=== PATIENT | male | born 1935 | race Caucasian/White ===

== ENCOUNTER 2016-07-25 17:11 | Emergency (ER) | payer SELFPAY ==
[~2016-07-25] VITALS: Ht 180.3 cm; Wt 86.4 kg
[2016-07-25 17:34] VITALS: Ht 180.3 cm; Wt 86.4 kg
== END 2016-07-25 21:49 | disposition left against medical advice (07) ==
LOC: E/R 17:11
DX: Z53.21 Procedure and treatment not carried out due to patient leaving prior to being seen by health care provider (principal)

== ENCOUNTER 2016-11-02 12:07 | Inpatient (IN) | payer MEDICARE, OTHER ==
[~2016-11-02] VITALS: Ht 165.1 cm; Wt 71.1 kg
[2016-11-02] VITALS (11 sets, daily range): BP systolic 110–187; BP diastolic 49–98; PULSE 70–128; RESP 18; Ht 165.1 cm; Wt 71.1 kg
[2016-11-02] MEDS ORDERED: morphine 4 MG/ML VIAL IV STA (12:25)
[2016-11-02 13:13] LABS: ADD SCAN DIFF NO
[2016-11-02 13:16] LABS: ABNORMAL IP MESSAGE 1; HEMATOCRIT 21.8 % (42.0-52.0); HEMOGLOBIN 7.3 g/dl (14.0-18.0); MEAN CORPUSCULAR HEMOGLOBIN 25.9 pg (29.0-33.0); MEAN CORPUSCULAR HGB CONC 33.5 g/dl (32.0-37.0); MEAN CORPUSCULAR VOLUME 77.3 fl (82.0-101.0); MEAN PLATELET VOLUME 12.5 fl (7.4-10.4); PLATELET COUNT 231 10^3/UL (140-415); RED BLOOD COUNT 2.82 10^6/ul (4.70-6.10); RED CELL DISTRIBUTION WIDTH 15.9 % (11.5-14.5)
--- NOTE | 2016-11-02 13:27 | RADRPT ---
PROCEDURE: XR Chest. CLINICAL INDICATION: Chest pain TECHNIQUE: Single portable view of the chest was obtained COMPARISON: None FINDINGS: There is moderate cardiomegaly. The thoracic aorta is calcified. There is a right-sided Perma-Cath in place. There is mild pulmonary vascular congestion. There is no evidence of pleural effusion. There is no pneumothorax. The bones and soft tissues are unremarkable. RPTAT: AA IMPRESSION: Moderate cardiomegaly with mild pulmonary vascular congestion. .Virgilio Ahuja MD, Date Time Electronically viewed and signed by .Virgilio Ahuja MD, on 11/02/2016 13:27 .S/
--- NOTE | 2016-11-02 13:30 | RADRPT ---
PROCEDURE: Right knee radiographs. CLINICAL INDICATION: Right knee pain. TECHNIQUE: Three views. Weight bearing. Frontal, lateral, and patellar view. COMPARISON: No prior studies are available for comparison. FINDINGS: There is no fracture or dislocation. There is a large joint effusion. Vascular calcifications are present consistent with atherosclerosi s. The articular surfaces are intact. There is no lytic or blastic lesion. Surgical clips are present in the soft tissues posteriorly medially. There is a small calcification or radiopaque foreign body measuring 0.3 cm in the soft tissues superiorly to the knee anteriorly. IMPRESSION: 1. Large joint effusion. 2. Atherosclerosis. 3. No fracture. 4. Prior surgery. 5. Small foreign body or calcification in the soft tissues anteriorly superior to the joint. RPTAT: QQ .Shahid Lowe MD, Date Time Electronically viewed and signed by .Shahid Lowe MD, on 11/02/2016 13:30 .R/
[2016-11-02 13:31] LABS: INR 1.8; PT RATIO 1.6
[2016-11-02 13:33] LABS: CALCIUM 9.3 mg/dl (8.4-10.2); POTASSIUM 4.4 mmol/L (3.5-5.1)
[2016-11-02 13:45] LABS: CREATININE 10.67 mg/dl (0.61-1.24); TROPONIN-I 0.061 ng/ml (0.00-0.12)
[2016-11-02] MEDS ORDERED: CEFEPIME 2GM/50 ML (PMX) 50 ML IVPB STA (14:28)
[2016-11-02] MEDS ORDERED: VANCOMYCIN 1 GM (PMX) 250 ML IVPB ONE (14:30)
[2016-11-02 14:39] LABS: LYMPHOCYTES # 0.6 10^3/ul (0.8-2.9); MONOCYTE # 1.2 10^3/ul (0.3-0.9); NEUTROPHIL # 27.5 10^3/ul (1.6-7.5)
--- NOTE | 2016-11-02 14:58 | ERA ---
ER Documentation Chief Complaint Date/Time DATE: 11/02/16 TIME: 14:50 Chief Complaint right leg pain HPI Detailed history is unobtainable from patient secondary to his clinical and cognitive deficit. This is a 81-year-old male presents to the emergency room from home for evaluation of right knee pain. The patient does state that he fell 2 days ago on his right knee. He states that he is here "for morphine and that is all". The patient denies any other pain and denies any loss of consciousness. I did not a dialysis catheter on this patient asked this patient whether or not he goes to dialysis. The patient cannot give me an answer one the last time he went to dialysis was. ROS All systems reviewed and are negative except as per history of present illness. PMhx/Soc Medical and Surgical Hx: pt denies Medical Hx Hx Cardiac Disorders: Yes (htn) Hx Psychiatric Problems: No Hx Miscellaneous Medical Probl: Yes (esrd) Hx Alcohol Use: No Hx Tobacco Use: No Smoking Status: Never smoker Physical Exam Vitals Vital Signs Date Time Temp Pulse Resp B/P Pulse Ox O2 Delivery O2 Flow Rate FiO2 11/02/16 13:41 81 18 112/47 98 Room Air Physical Exam INITIAL VITAL SIGNS: Reviewed by me GENERAL: The patient is frail-appearing elderly gentleman, mild this HEENT: Dry mucous membranes, pupils equal, round, and reactive to light. EOMI. There is no scleral icterus. NECK: C-spine is soft and supple, there is no meningismus. There is no cervical lymphadenopathy. LUNGS: Coarse breath sounds bilaterally. There are no rales, wheezes or rhonchi. HEART: Regular rate and rhythm, no murmurs, clicks, rubs or gallops. ABDOMEN: Soft, non-tender, non-distended. There are bowel sounds in all four quadrants. No rebound or guarding. EXTREMITIES: Tender to palpation over the right patellar joint with mild soft tissue swelling, no erythema, there is no peripheral cyanosis or edema. No focal swelling or erythema. NEUROLOGICAL: The patient moves all four extremities with 5/5 strength. Cranial nerves II - XII are intact. Normal gait. Alert and oriented SKIN: Dialysis catheter in the anterior chest wall there is no apparent rash or petechiae. HEME/LYMPHATIC: There is no evidence of excessive bruising or lymphedema. PSYCHIATRIC: The patient does not appear anxious or depressed. Result Diagram: 5/11/17 1240 11/02/16 1240 Results 24 hrs Laboratory Tests Test 11/02/16 12:40 White Blood Count 31.210^3/ul Red Blood Count 2.8210^6/ul Hemoglobin 7.3g/dl Hematocrit 21.8% Mean Corpuscular Volume 77.3fl Mean Corpuscular Hemoglobin 25.9pg Mean Corpuscular Hemoglobin Concent 33.5g/dl Red Cell Distribution Width 15.9% Platelet Count 08771^3/UL Mean Platelet Volume 12.5fl Neutrophils % 88.0% Band Neutrophils % 6.0% Lymphocytes % 2.0% Monocytes % 4.0% Eosinophils % % Neutrophils # 27.510^3/ul Lymphocytes # 0.610^3/ul Monocytes # 1.210^3/ul Eosinophils # 10^3/ul Prothrombin Time 21.0Sec Prothrombin Time Ratio 1.6 INR International Normalized Ratio 1.80 Activated Partial Thromboplast Time 36.0Sec Sodium Level 135mmol/L Potassium Level 4.4mmol/L Chloride Level 98mmol/L Carbon Dioxide Level 21mmol/L Anion Gap 20 Blood Urea Nitrogen 172mg/dl Creatinine 10.67mg/dl Glucose Level 117mg/dl Calcium Level 9.3mg/dl Troponin I 0.061ng/ml Current Medications Medications (Trade) Dose Ordered Sig/Villa Route PRN Reason Start Time Stop Time Status Last Admin Dose Admin Morphine Sulfate 4 mg 4 mg ONCE STAT IV 11/02/16 12:25 11/02/16 12:26 DC 11/02/16 12:46 Cefepime HCl 50 ml @ 100 mls/hr ONCE STAT IVPB 11/02/16 14:28 11/02/16 14:57 11/02/16 14:35 Vancomycin HCl (Vancocin) 250 ml @ 125 mls/hr ONCE ONCE IVPB 11/02/16 14:30 11/02/16 16:29 11/02/16 14:35 Procedures/MDM EKG: Rate/Rhythm: Sinus tachycardia QRS, ST, T-waves: [No changes consistent w/ acute ischemia] Impression: [No evidence of ischemia or arrhythmia] Chest X-ray 1V Interpreted by me: Soft Tissue: No acute abnormalities Bones: No acute abnormalities Mediastinum/Cardiac Silhouette/Lungs: Pulmonary vascular congestion X-ray Knee 3V Interpreted by me: Bones: No fracture Joints: Soft tissue swelling Foreign body: None This 81-year-old male presents to the emergency room for evaluation of right- sided knee pain originally. When I evaluated this patient he did have some soft tissue swelling of his right knee. No erythema of the right knee was noted. Lab work was obtained as I was unable to ascertain when the last time this patient went to dialysis was. This patient's lab work does reveal leukocytosis with bandemia, and microcytic anemia. This patient also has uremia with a BUN of 172. His potassium is within normal limits. Patient is unable to tell me when the last time he went to dialysis, and given his clinical condition with mild confusion I do believe the patient is uremic. This patient did have a septic workup however he was not given 30 cc/kg of IV normal saline as he is a renal patient and does have pulmonary vascular congestion on my examination which is confirmed with chest x-ray. The patient was started on vancomycin and cefepime for sepsis with unknown source at this time. My suspicion for septic joint is low at this time as there is no erythema or streaking noted around the right knee. The patient refuses to let me drain the need for fluid analysis. This patient will be placed in for admission at this time under the care of her panel physician, Dr. Tello with nephrology consult for dialysis for uremia. This patient's knee pain is controlled with morphine at this time Critical Care: Excluding all billable procedures Time: 35 minutes Treatments/Evaluations: Close monitoring and treatment of unstable vital signs, cardiorespiratory, and neurologic status, while maintaining tight balance of fluid, respiratory, and cardiac interventions. Departure Diagnosis: Primary Impression: Sepsis Additional Impressions: Uremia, acute Microcytic anemia Knee effusion, right End stage renal disease Condition: Serious URSULAJIM LLAMASTORSTEN HA November 02, 2016 14:58
[2016-11-02] MEDS ORDERED: ACETAMINOPHEN 325 MG TAB PO PRN ×2 (15:00→16:00)
[2016-11-02] MEDS ORDERED: ONDANSETRON 4 MG INJ IV PRN ×2 (15:00→16:00)
[2016-11-02 15:12] LABS: ADD UMIC YES; URINE BILIRUBIN (Dip) NEGATIVE (NEGATIVE); URINE BLOOD (Dip) 1+ (NEGATIVE); URINE COLOR YELLOW (YELLOW); URINE GLUCOSE (Dip) NEGATIVE (NEGATIVE); URINE KETONES (Dip) NEGATIVE (NEGATIVE); URINE LEUKOCYTE ESTERASE (Dip) 3+ (NEGATIVE); URINE NITRITE (Dip) NEGATIVE (NEGATIVE); URINE TOTAL PROTEIN (Dip) 2+ (NEGATIVE); URINE UROBILINOGEN (Dip) 1.0 E.U./dL (0.1-1.0)
[2016-11-02 15:29] LABS: TRANSITIONAL EPI CELLS,URINE FEW
[2016-11-02 15:30] LABS: BACTERIA,URINE MANY
[2016-11-02] MEDS ORDERED: NACL 0.9% 3 ML SYG IV SCH (16:00)
[2016-11-02] MEDS ORDERED: ACETAMINOPHEN 650 MG SUPP PR PRN (16:00)
[2016-11-02] MEDS ORDERED: MAGNESIUM HYDROXIDE 30ML CUP PO PRN (16:00)
[2016-11-02] MEDS ORDERED: DOCUSATE SODIUM 100 MG CAP PO PRN (16:00)
[2016-11-02] MEDS ORDERED: VANCOMYCIN IV PER PHARMACY XX SCH (16:00)
[2016-11-02] MEDS ORDERED: BISACODYL 10 MG SUPP PR PRN (16:00)
[2016-11-02] MEDS ORDERED: HYDROCODONE/APAP (5/325) TAB PO PRN ×2 (16:00)
[2016-11-02 16:14] LABS: WHITE BLOOD COUNT 31.2 10^3/ul (4.8-10.8)
--- NOTE | 2016-11-02 16:54 | HP ---
Date/Time of Note Date/Time of Note DATE: 11/02/16 TIME: 16:45 Assessment/Plan VTE Prophylaxis VTE Prophylaxis Intervention: heparin Lines/Catheters IV [facility] Type ([facility] Peripheral IV Assessment/Plan Chief Complaint/Hosp Course Assessment and plan 1. Sepsis. Patient noted with positive leukocyte esterase test. Suspect source UTI. Continue with antibiotics. ID consult to follow. Follow-up on mccann cultures 2. Reported mechanical fall with right knee pain. Patient did have right knee imaging did show large joint effusion but no fracture. There was also seen a small foreign body or calcification in the soft tissues anteriorly superior to the joint. Continue with analgesics. Orthopedic surgeon to follow 3. End-stage renal disease. Patient was with reported missed dialysis 2. Nuclear Power Reactor Operator consulted. Plan for dialysis. Follow-up on BMP 4. Reported hypertension. Blood pressure remained stable at present. Will provide antihypertensives as needed. 5. Dyslipidemia. Follow-up on fasting lipid panel. Will start statin pending diagnostic results DVT plexus: Heparin Admission process 40 minutes Discussed plan of care with Problems: HPI/ROS Admit Date/Time Admit Date/Time Hx of Present Illness There is a 81-year-old male who is a poor historian and slightly altered due to reported missed dialysis was brought to [facility] due to reports of right knee pain. Complete accounts of history unknown at this time. According to the patient he stated that he fell down at home on October 19, 2016. No reports of loss of consciousness at that time. He does report that since then he has been unable to walk. He also reports he has been refusing dialysis. Due to his continued deconditioned state he was brought to [facility] for further evaluation. Upon examination he did have a right knee x-ray that did show him to have large joint effusion and atherosclerosis but no fracture. There was also seen a small foreign body or calcification in the soft tissues anteriorly superior to the joint. Chest imaging also showed moderate cardiomegaly with mild pulmonary vascular congestion. Patient was also seen with a white count of 31.2 and also anemic with hemoglobin of 7.3 and hematocrit 21.8. Additionally patient was seen with BUN of 172 and creatinine of 10.67 likely secondary to his missed dialysis. Patient is slightly altered and forgetful. No reports of chest pain or shortness of breath this time. He does have moderate pain on palpation of right lower extremity more towards knee. We will evaluate him for the aformentiond issues ROS Unable to fully obtain due to patient's mental status PMH/Family/Social Past Medical History Medical/surgical history (I would patient mention) 1. Cardiac surgical intervention (details unknown) 2. Hypertension 3. dyslipidemia Social History Smoking Status: Never smoker Exam/Review of Systems Vital Signs Vitals Vital Signs Date Time Temp Pulse Resp B/P Pulse Ox O2 Delivery O2 Flow Rate FiO2 11/02/16 16:30 90 18 130/46 97 Room Air Exam Constitutional: other (Forgetful, slightly altered) Head: normocephalic Neck: No jvd Respiratory: diminished breath sounds (More lung bases) Cardiovascular: other Gastrointestinal: non-tender, soft Musculoskeletal: swelling (Noted on right knee) Neurological: nl mental status, nl speech Skin: nl turgor Labs Result Diagram: 11/02/16 1240 11/02/16 1240 Medications Medications Current Medications Ondansetron HCl (Zofran Inj) 4 mg Q6H PRN IV NAUSEA AND/OR VOMITING; Start 05/11 at 16:00 Acetaminophen (Tylenol Tab) 650 mg Q6H PRN PO PAIN LEVEL 1-3 OR FEVER; Start at 16:00 Acetaminophen (Tylenol Supp) 650 mg Q6H PRN ME PAIN LEVEL 1-3 OR FEVER; Start 11/02/16 at 16:00 Acetaminophen/ Hydrocodone Bitart ([place] (5/325)) 1 tab Q6H PRN PO MODERATE PAIN LEVEL 4-6; Start 11/02/16 at 16:00 Acetaminophen/ Hydrocodone Bitart ([place] (5/325)) 2 tab Q6H PRN PO SEVERE PAIN LEVEL 7-10; Start 11/02/16 at 16:00 Morphine Sulfate (morphine) 2 mg Q4H PRN IV SEVERE PAIN LEVEL 7-10; Start 11/02 at 16:00 Docusate Sodium (Colace) 100 mg Q12H PRN PO CONSTIPATION; Start 11/02/16 at 16: 00 Magnesium Hydroxide (Milk Of Mag) 30 ml DAILY PRN PO CONSTIPATION; Start at 16:00 Bisacodyl (Dulcolax Supp) 10 mg DAILY PRN ME CONSTIPATION; Start 11/02/16 at 16 :00 Pantoprazole (Protonix Iv) 40 mg DAILY@06 IV ; Start 11/03/16 at 06:00 Heparin Sodium (Porcine) 5000 unit 5,000 unit Q12 SC ; Start 11/02/16 at 21:00 Piperacillin Sod/ Tazobactam Sod (Zosyn 3.375gm/ 100 ml (Pmx)) 100 ml @ 200 mls /hr Q6 IVPB ; Start 11/02/16 at 18:00; Status UNV Mannitol (Mannitol 25%) 12.5 gm ONCE ONCE IV* ; Start 11/02/16 at 17:00; Stop 11/02/16 at 17:01; Status UNV Mannitol (Mannitol 25%) 12.5 gm ONCE ONCE IV* ; Start 11/02/16 at 17:00; Stop 11/02/16 at 17:01; Status UNV JOCELYNN CARDENAS November 02, 2016 16:54
[2016-11-02] MEDS ORDERED: MANNITOL 25% 50 ML INJ IV* ONE ×2 (17:00→18:00)
--- NOTE | 2016-11-02 17:31 | CONS ---
DATE OF ADMISSION: 11/02/2016 DATE OF CONSULTATION: 11/02/2016 TYPE OF CONSULTATION: Infectious Disease. REASON FOR CONSULTATION: Antibiotic management. HISTORY OF PRESENT ILLNESS: Elzbieta Ruiz is a 81-year-old [place] male who has sign ificant clinical and cognitive deficits, who presented to the emergency room from home for evaluatio n of right knee pain. The patient fell 2 days prior to admission on his right knee. He denies any other pain or loss of consciousness. The patient is a dialysis patient, but does not know he is goi ng to dialysis. His past problems include: 1. Hypertension. 2. End-stage renal disease, on dialysis. On admission, his white count was 31.2, H and H of 7.3 and 21.8, platelet count 231,000. BUN and cr eatinine 172/10.67, glucose random 117. PAST MEDICAL HISTORY: Operations as outlined. FAMILY HISTORY: Noncontributory. SOCIAL HISTORY: He does not smoke, drink or abuse drugs. ALLERGIES: NONE TO PENICILLIN, SULFA OR FOODS. MEDICATIONS: Per chart. REVIEW OF SYSTEMS: As per HPI. PHYSICAL EXAMINATION: GENERAL: The patient is a frail appearing elderly gentleman who is awake, but noncommunicative or b paulnio communicative, in no acute distress. VITAL SIGNS: Stable. He is afebrile. SKIN: He has a dialysis catheter in the anterior chest wall. He has no rash, icterus or petechiae. HEENT: Within normal limits. NECK: Supple. LYMPH NODES: Without adenopathy.. CHEST: Decreased breath sounds at the bases. HEART: Without murmur or gallop. ABDOMEN: Soft, nontender, without organosplenomegaly or masses. EXTREMITIES: Without cyanosis, clubbing, or edema. There is tenderness to palpation of the right p atellar joint with mild soft tissue swelling. No focal swelling or erythema. RECTAL AND GENITAL: Deferred. NEUROLOGIC: No focal neurological abnormalities. LABORATORY AND DIAGNOSTIC DATA: As noted on admission, his white count was 31.2. Chest x-ray shows moderate cardiomegaly, mild pulmonary vascular congestion. X-ray of the knee, small foreign body o r calcification in the soft tissues anterior superior to the joint. Large joint effusion, atheroscl erosis, no fracture, prior surgery. There are surgical clips present in the soft tissue posteriorly and medially. IMPRESSION AND PLAN: We should get orthopedics to evaluate the patient. He probably needs an aspir ation of the joint to rule out a septic joint. He also should have the foreign bodies removed from the anterior aspect of the joint. The patient refused to let the emergency room physician drain the joint. He should have an orthopedist or invasive radiologist do this. We will continue him on cur rent therapy. I will dictate my findings to the hospitalist, Dr. Tello. Dictated By: DARNELL OLIVO MD, JD/JOSÉ MIGUEL Conf#: [id number] DID#: [id number]
[2016-11-02] MEDS: morphine 2 MG INJ IV PRN (17:45)
[2016-11-02] MEDS ORDERED: PIPER-TAZO 3.375 GM IV (PMX) 100 ML IVPB SCH (18:00)
--- NOTE | 2016-11-02 18:00 | CONS ---
Date/Time of Note Date/Time of Note DATE: 11/02/16 TIME: 17:54 Assessment/Plan Assessment/Plan Additional Assessment/Plan 81 yo Male with 1) AMS 2) ESRD on HD 3) Perma-cath 4) Anemia, Chronic, ESRD 5) Mineral bone disease, ESRD 6) AMS- Uremia 7) Chronic HTN 8) Pulm Edema HD ordered for today and tomorrow Due to AMS, Uremia, high BUN, gently HD, will also use mannitol Needs UF, Mild CHF Epogen with HD Check Iron panel Check Phos in am Renal Diet Thank you for opportunity to participate in the care of this patient. Consultation Date/Type/Reason Admit Date/Time Date of Consultation: November 02, 2016 Type of Consultation: Renal Reason for Consultation ESRD Referring Provider: JOCELYNN CARDENAS Hx of Present Illness 81-year-old male with history of ESRD on HD, Last HD unknown, has missed HD treatments and is not aware of dialysis unit or nephrologsit. He was brought to [facility] due right knee pain. Chest Xray showed moderate cardiomegaly with mild pulmonary vascular congestion. Incidentally found to have elevate white count of 31.2 and also anemic with hemoglobin of 7.3 and hematocrit 21.8., BUN of 172 and creatinine of 10.67 . Pt has AMS. No reports of chest pain or shortness of breath at this time. No report of fever or chills, No history of N/V/D, abdominal pain or dysuria. Nephrology consulted for management of ESRD. Unable due to condition Constitutional: No requiring O2 Past Medical History Medical History: hypertension, renal disease Past Surgical History Past Surgical Hx: other (AVF, PC) Family History Significant Family History: no pertinent family hx Social History Alcohol Use: none Smoking Status: Never smoker Drug Use: none Exam/Review of Systems Vital Signs Vitals Vital Signs Date Time Temp Pulse Resp B/P Pulse Ox O2 Delivery O2 Flow Rate FiO2 11/02/16 16:30 90 18 130/46 97 Room Air Exam Constitutional: frail, No distress Psych: No anxiety Head: atraumatic, normocephalic Eyes: EOMI ENMT: mucosa pink and moist Neck: No jvd Respiratory: crackles/rales, normal air movement, No diminished breath sounds, No labored breathing Cardiovascular: regular rate and rhythm, No edema Gastrointestinal: non-tender, soft, No distended, No rebound or guarding Musculoskeletal: nl extremities to inspection Extremities: No edema Neurological: confused, lethargic Skin: nl turgor, No diaphoresis, No rash or lesions Results Result Diagram: 11/02/16 1240 11/02/16 1240 Results 24 hrs Laboratory Tests Test 11/02/16 12:40 11/02/16 14:35 11/02/16 14:40 11/02/16 16:30 White Blood Count 31.2 H Red Blood Count 2.82 L Hemoglobin 7.3 L Hematocrit 21.8 L Mean Corpuscular Volume 77.3 L Mean Corpuscular Hemoglobin 25.9 L Mean Corpuscular Hemoglobin Concent 33.5 Red Cell Distribution Width 15.9 H Platelet Count 231 Mean Platelet Volume 12.5 H Neutrophils % 88.0 H Band Neutrophils % 6.0 H Lymphocytes % 2.0 L Monocytes % 4.0 Eosinophils % Neutrophils # 27.5 H Lymphocytes # 0.6 L Monocytes # 1.2 H Eosinophils # Prothrombin Time 21.0 H Prothrombin Time Ratio 1.6 INR International Normalized Ratio 1.80 Activated Partial Thromboplast Time 36.0 H Sodium Level 135 Potassium Level 4.4 Chloride Level 98 Carbon Dioxide Level 21 Anion Gap 20 H Blood Urea Nitrogen 172 H Creatinine 10.67 H Glucose Level 117 Calcium Level 9.3 Troponin I 0.061 Lactic Acid Level 1.1 1.5 Urine Color YELLOW Urine Clarity CLOUDY H Urine pH 5.5 Urine Specific [place] 1.020 Urine Ketones NEGATIVE Urine Nitrite NEGATIVE Urine Bilirubin NEGATIVE Urine Urobilinogen 1.0 E.U./dL Urine Leukocyte Esterase 3+ H Urine Microscopic RBC 2-5 Urine Microscopic WBC >200 Urine Transitional Epithelial Cells FEW Urine Bacteria MANY Urine Hemoglobin 1+ H Urine Glucose NEGATIVE Urine Total Protein 2+ H Medications Medications Current Medications Ondansetron HCl (Zofran Inj) 4 mg Q6H PRN IV NAUSEA AND/OR VOMITING; Start 05/11 at 16:00 Acetaminophen (Tylenol Tab) 650 mg Q6H PRN PO PAIN LEVEL 1-3 OR FEVER; Start at 16:00 Acetaminophen (Tylenol Supp) 650 mg Q6H PRN [place] PAIN LEVEL 1-3 OR FEVER; Start 11/02/16 at 16:00 Acetaminophen/ Hydrocodone Bitart ([place] (5/325)) 1 tab Q6H PRN PO MODERATE PAIN LEVEL 4-6; Start 11/02/16 at 16:00 Acetaminophen/ Hydrocodone Bitart ([place] (5/325)) 2 tab Q6H PRN PO SEVERE PAIN LEVEL 7-10; Start 11/02/16 at 16:00 Morphine Sulfate (morphine) 2 mg Q4H PRN IV SEVERE PAIN LEVEL 7-10 Last administered on 11/02/16t 17:45; Admin Dose 2 MG; Start 11/02/16 at 16:00 Docusate Sodium (Colace) 100 mg Q12H PRN PO CONSTIPATION; Start 11/02/16 at 16: 00 Magnesium Hydroxide (Milk Of Mag) 30 ml DAILY PRN PO CONSTIPATION; Start at 16:00 Bisacodyl (Dulcolax Supp) 10 mg DAILY PRN [place] CONSTIPATION; Start 11/02/16 at 16 :00 Pantoprazole (Protonix Iv) 40 mg DAILY@06 IV ; Start 11/03/16 at 06:00 Heparin Sodium (Porcine) (Heparin (5000 Units/0.5 ml)) 5,000 unit Q12 SC ; Start 11/02/16 at 21:00 Mannitol 12.5 gm 12.5 gm ONCE ONCE IV* ; Start 11/02/16 at 18:00; Stop at 18:01 Piperacillin Sod/ Tazobactam Sod (Zosyn 2.25gm/ 50ml (Pmx)) 50 ml @ 100 mls/hr Q8 IVPB ; Start 11/02/16 at 20:00 Procedures Procedures PROCEDURE: XR Chest. CLINICAL INDICATION: Chest pain TECHNIQUE: Single portable view of the chest was obtained COMPARISON: None FINDINGS: There is moderate cardiomegaly. The thoracic aorta is calcified. There is a right-sided Perma-Cath in place. There is mild pulmonary vascular congestion. There is no evidence of pleural effusion. There is no pneumothorax. The bones and soft tissues are unremarkable. RPTAT: AA IMPRESSION: Moderate cardiomegaly with mild pulmonary vascular congestion. .Virgilio Ahuja MD, MD Date Time Electronically viewed and signed by .Virgilio Ahuja MD, MD on 11/02/2016 13: 27 TANISHA MURPHY MD November 02, 2016 18:00
[2016-11-02] MEDS ORDERED: ASPI81TA3 PO (19:56)
[2016-11-02] MEDS ORDERED: VANCOMYCIN 750 MG in SOD CHLORIDE 0.9% 150 ML IVPB SCH (20:00)
[2016-11-02] MEDS ORDERED: FER325 PO (20:04)
[2016-11-02] MEDS ORDERED: DILT240C79 PO (20:04)
[2016-11-02] MEDS ORDERED: ATOR40TA68 PO (20:04)
[2016-11-02] MEDS ORDERED: GABA300C16 PO (20:04)
[2016-11-02] MEDS ORDERED: METO-429 PO (20:04)
[2016-11-02] MEDS ORDERED: HYDR-3672 PO (20:04)
[2016-11-02] MEDS: PIPER-TAZO 2.25 GM (PMX) 50 ML IVPB SCH (20:40)
[2016-11-02 20:57] LABS: CK-MB 1.43 ng/ml (0.0-2.4)
[2016-11-02 20:59] LABS: TROPONIN-I 0.098 ng/ml (0.00-0.12)
[2016-11-02] MEDS: HEPARIN 5,000 UNIT/0.5 ML VIAL SC SCH (21:28)
[2016-11-03] VITALS (11 sets, daily range): BP systolic 88–142; BP diastolic 48–88; PULSE 84–110; RESP 16–20
[2016-11-03 02:05] LABS: CK-MB 2.62 ng/ml (0.0-2.4)
[2016-11-03 02:06] LABS: TROPONIN-I 0.171 ng/ml (0.00-0.12)
[2016-11-03 05:40] LABS: IRON 16 ug/dl (35-150)
[2016-11-03] MEDS: PIPER-TAZO 2.25 GM (PMX) 50 ML IVPB SCH ×4 (05:40→22:11)
[2016-11-03] MEDS: PANTOPRAZOLE 40 MG INJ IV SCH (05:40)
[2016-11-03 05:49] LABS: ALBUMIN 2.5 g/dl (3.3-4.9); ALBUMIN/GLOBULIN RATIO 0.73; BILIRUBIN,DIRECT 0.7 mg/dl (0.00-0.20); BILIRUBIN,INDIRECT 0.2 mg/dl (0-1.1); BILIRUBIN,TOTAL 0.9 mg/dl (0.2-1.3); CALCIUM 8.7 mg/dl (8.4-10.2); MAGNESIUM 2.2 mg/dl (1.7-2.5); PHOSPHORUS 4.8 mg/dl (2.5-4.9); POTASSIUM 4.8 mmol/L (3.5-5.1); TOTAL PROTEIN 5.9 g/dl (6.1-8.1)
[2016-11-03 05:50] LABS: TOTAL IRON BINDING CAPACITY 163 ug/dl (241-421)
[2016-11-03 05:57] LABS: T3 UPTAKE 53.5 % (23.5-40.5)
[2016-11-03 05:59] LABS: CREATININE 8.7 mg/dl (0.61-1.24)
[2016-11-03 06:11] LABS: THYROID STIMULATING HORMONE 0.496 MIU/L (0.465-4.680)
[2016-11-03] MEDS: HEPARIN 5,000 UNIT/0.5 ML VIAL SC SCH ×2 (09:11→21:02)
--- NOTE | 2016-11-03 14:43 | PN ---
DATE: 11/03/2016 SUBJECTIVE: Patient is awake, confused, looks comfortable. Afebrile. WBC yesterday was 31.2. No labs this morning. MICROBIOLOGY: Urine culture growing Staphylococcus aureus. Blood culture growing gram-positive gabbie ci in clusters, 2/2 bottles. DIAGNOSTICS: Chest x-ray from yesterday revealed moderate cardiomegaly with pulmonary vascular herbie estion, right knee x-ray revealed large joint effusion, no fracture. INDWELLINGS: Right chest Perm-A-Cath. ANTIMICROBIALS: 1. Zosyn. 2. Vancomycin. PHYSICAL EXAMINATION: GENERAL: Fragile, elderly man who is awake, confused, in no distress. HEENT: Head atraumatic, normocephalic. Sclerae anicteric. Buccal mucosa dry. NECK: Supple, trachea midline. CHEST: Rise symmetrical. Breath sounds diminished to bases. HEART: S1, S2. ABDOMEN: Soft, bowel tones present. EXTREMITIES: With right knee evidence of fluid collection. ASSESSMENT: 1. Sepsis with bacteremia. 2. Urinary tract infection. 3. Right knee effusion, rule out septic joint. 4. End-stage renal disease, hemodialysis dependent. 5. Dementia. 6. Hypertension. PLAN: The patient remains stable on appropriate antimicrobials. Blood cultures from hemodialysis c atheter growing gram-positive cocci consistent with line sepsis, consider to Perm-A-Cath discontinu ation and giving patient a line holiday, consider ortho evaluation. Follow final cultures. Dictated By: AUDREY DOMINIQUE APPLICATION SUPPORT ENGINEER for DARNELL DARDEN/JOSÉ MIGUEL Conf#: [id number] DID#: [id number]
--- NOTE | 2016-11-03 15:49 | CONS ---
Date/Time of Note Date/Time of Note DATE: 11/03/16 TIME: 15:48 Assessment/Plan Assessment/Plan Additional Assessment/Plan 81 yo Male with 1) AMS 2) ESRD on HD 3) Perma-cath 4) Anemia, Chronic, ESRD, KACY 5) Mineral bone disease, ESRD 6) AMS- Uremia 7) Chronic HTN 8) Pulm Edema 9) Bacteremia HD today UF as tolerated Will order HD again for tomorrow Oral Iron only NO IV Iron Rx, due to possible bacteremia, Sepsis. Thank you for opportunity to participate in the care of this patient. Consultation Date/Type/Reason Admit Date/Time November 02, 2016 at 14:49 Initial Consult Date 11/02/16 Type of Consultation: Renal Referring Provider: JOCELYNN CARDENAS Exam/Review of Systems Vital Signs Vitals Vital Signs Date Time Temp Pulse Resp B/P Pulse Ox O2 Delivery O2 Flow Rate FiO2 11/03/16 15:11 88 14 11/03/16 07:25 97.8 142/80 94 11/02/16 17:15 Room Air Intake and Output 11/02/16 11/02/16 11/03/16 14:59 22:59 06:59 Intake Total 450 ml 200 ml Output Total 2300 ml Balance -1850 ml 200 ml Exam Constitutional: No distress ENMT: mucosa pink and moist Respiratory: No diminished breath sounds, No labored breathing Gastrointestinal: soft Neurological: lethargic Results Result Diagram: 11/02/16 1240 11/03/16 0436 Results 24 hrs Laboratory Tests Test 11/02/16 16:30 11/02/16 20:05 11/03/16 00:45 11/03/16 04:36 Lactic Acid Level 1.5 2.5 H Creatine Kinase 22 L 42 Creatine Kinase Index 6.5 6.2 Creatinine Kinase MB (Mass) 1.43 2.62 H Troponin I 0.098 0.171 *H Sodium Level 136 Potassium Level 4.8 Chloride Level 101 Carbon Dioxide Level 24 Anion Gap 16 Blood Urea Nitrogen 143 H Creatinine 8.70 H Glucose Level 123 Hemoglobin A1c 5.0 Calcium Level 8.7 Phosphorus Level 4.8 Magnesium Level 2.2 Iron Level 16 L Total Iron Binding Capacity 163 L Percent Iron Saturation 10 L Total Bilirubin 0.9 Direct Bilirubin 0.70 H Indirect Bilirubin 0.2 Aspartate Amino Transf (AST/SGOT) 87 H Alanine Aminotransferase (ALT/SGPT) 64 Alkaline Phosphatase 587 H Total Protein 5.9 L Albumin 2.5 L Globulin 3.40 H Albumin/Globulin Ratio 0.73 Triglycerides Level 239 H Cholesterol Level 97 L LDL Cholesterol, Calculated 33 HDL Cholesterol 16 L Cholesterol/HDL Ratio 6.0 Thyroid Stimulating Hormone (TSH) 0.496 Free Thyroxine Index 2.03 Thyroxine (T4) 3.8 L Triiodothyronine (T3) Uptake 53.5 H Parathyroid Hormone (Intact) Medications Medications Current Medications Ondansetron HCl (Zofran Inj) 4 mg Q6H PRN IV NAUSEA AND/OR VOMITING; Start 05/11 at 16:00 Acetaminophen (Tylenol Tab) 650 mg Q6H PRN PO PAIN LEVEL 1-3 OR FEVER; Start at 16:00 Acetaminophen (Tylenol Supp) 650 mg Q6H PRN [place] PAIN LEVEL 1-3 OR FEVER; Start 11/02/16 at 16:00 Acetaminophen/ Hydrocodone Bitart ([place] (5/325)) 1 tab Q6H PRN PO MODERATE PAIN LEVEL 4-6 Last administered on 11/03/16 12:27; Admin Dose 1 TAB; Start 05/11 at 16:00 Acetaminophen/ Hydrocodone Bitart ([place] (5/325)) 2 tab Q6H PRN PO SEVERE PAIN LEVEL 7-10; Start 11/02/16 at 16:00 Morphine Sulfate (morphine) 2 mg Q4H PRN IV SEVERE PAIN LEVEL 7-10 Last administered on 11/02/16 17:45; Admin Dose 2 MG; Start 11/02/16 at 16:00 Docusate Sodium (Colace) 100 mg Q12H PRN PO CONSTIPATION; Start 11/02/16 at 16: 00 Magnesium Hydroxide (Milk Of Mag) 30 ml DAILY PRN PO CONSTIPATION; Start at 16:00 Bisacodyl (Dulcolax Supp) 10 mg DAILY PRN [place] CONSTIPATION; Start 11/02/16 at 16 :00 Pantoprazole (Protonix Iv) 40 mg DAILY@06 IV Last administered on 11/03/16 05: 40; Admin Dose 40 MG; Start 11/03/16 at 06:00 Heparin Sodium (Porcine) 5000 unit 5,000 unit Q12 SC Last administered on 09:11; Admin Dose 5,000 UNIT; Start 11/02/16 at 21:00 Piperacillin Sod/ Tazobactam Sod (Zosyn 2.25gm/ 50ml (Pmx)) 50 ml @ 100 mls/hr Q8 IVPB Last administered on 11/03/16t 05:40; Admin Dose 100 MLS/HR; Start 05/11 at 20:00 Miscellaneous Information (*Rx Drug Level Order Reminder*) 1 ONCE ONCE XX ; Start 11/04/16 at 05:00; Stop 11/04/16 at 05:01 TANISHA MURPHY MD November 03, 2016 15:49
--- NOTE | 2016-11-03 16:36 | PN ---
Date/Time of Note Date/Time of Note DATE: 11/03/16 TIME: 16:28 Assessment/Plan VTE Prophylaxis VTE Prophylaxis Intervention: heparin Lines/Catheters IV [facility] Saline Lock Urinary Cath still in place: No Assessment/Plan Chief Complaint/Hosp Course Assessment and plan 1. Sepsis. Patient noted with positive leukocyte esterase test. Staph aureus seen in urine culture. Continue with antibiotics. ID consult following 2. Reported mechanical fall with right knee pain. Patient did have right knee imaging did show large joint effusion but no fracture. There was also seen a small foreign body or calcification in the soft tissues anteriorly superior to the joint. Continue with analgesics. Awaiting orthopedic surgeon) 3. End-stage renal disease. Patient was with reported missed dialysis 2. Kiln Tender following. Dialysis per fourth mate 4. Reported hypertension. Blood pressure remained stable at present. Will provide antihypertensives as needed. 5. Dyslipidemia. start on statin 6. elevated troponin. Follow up echo. Revenue Accounting Manager to follow DVT prophylaxis: Heparin DISPO/PLAN: cardiology to follow for elevated troponin. Await orthopedic surgeon input. Will follow up Discussed plan of care with Problems: Subjective 24 Hr Interval Summary Free Text/Dictation still confused. RN at bedside Exam/Review of Systems Vital Signs Vitals Vital Signs Date Time Temp Pulse Resp B/P Pulse Ox O2 Delivery O2 Flow Rate FiO2 11/03/16 15:11 88 14 11/03/16 07:25 97.8 142/80 94 11/02/16 17:15 Room Air Intake and Output 11/02/16 11/02/16 11/03/16 15:00 23:00 07:00 Intake Total 450 ml 200 ml Output Total 2300 ml Balance -1850 ml 200 ml Exam Constitutional: forgetful Head: normocephalic Neck: No jvd Respiratory: still dimiished Cardiovascular: other Gastrointestinal: non-tender, soft Musculoskeletal: swelling (Noted on right knee) unchanged Neurological: confused Skin: nl turgor Results Result Diagram: 11/02/16 1240 11/03/16 0436 Results 24 hrs Laboratory Tests Test 11/02/16 16:30 11/02/16 20:05 11/03/16 00:45 11/03/16 04:36 Lactic Acid Level 1.5 2.5 H Creatine Kinase 22 L 42 Creatine Kinase Index 6.5 6.2 Creatinine Kinase MB (Mass) 1.43 2.62 H Troponin I 0.098 0.171 *H Sodium Level 136 Potassium Level 4.8 Chloride Level 101 Carbon Dioxide Level 24 Anion Gap 16 Blood Urea Nitrogen 143 H Creatinine 8.70 H Glucose Level 123 Hemoglobin A1c 5.0 Calcium Level 8.7 Phosphorus Level 4.8 Magnesium Level 2.2 Iron Level 16 L Total Iron Binding Capacity 163 L Percent Iron Saturation 10 L Total Bilirubin 0.9 Direct Bilirubin 0.70 H Indirect Bilirubin 0.2 Aspartate Amino Transf (AST/SGOT) 87 H Alanine Aminotransferase (ALT/SGPT) 64 Alkaline Phosphatase 587 H Total Protein 5.9 L Albumin 2.5 L Globulin 3.40 H Albumin/Globulin Ratio 0.73 Triglycerides Level 239 H Cholesterol Level 97 L LDL Cholesterol, Calculated 33 HDL Cholesterol 16 L Cholesterol/HDL Ratio 6.0 Thyroid Stimulating Hormone (TSH) 0.496 Free Thyroxine Index 2.03 Thyroxine (T4) 3.8 L Triiodothyronine (T3) Uptake 53.5 H Parathyroid Hormone (Intact) Medications Medications Current Medications Ondansetron HCl (Zofran Inj) 4 mg Q6H PRN IV NAUSEA AND/OR VOMITING; Start 05/11 at 16:00 Acetaminophen (Tylenol Tab) 650 mg Q6H PRN PO PAIN LEVEL 1-3 OR FEVER; Start at 16:00 Acetaminophen (Tylenol Supp) [address] PAIN LEVEL 1-3 OR FEVER; Start 11/02/16 at 16:00 Acetaminophen/ Hydrocodone Bitart ([place] (5/325)) 1 tab Q6H PRN PO MODERATE PAIN LEVEL 4-6 Last administered on 11/03/16 12:27; Admin Dose 1 TAB; Start 05/11 at 16:00 Acetaminophen/ Hydrocodone Bitart ([place] (5/325)) 2 tab Q6H PRN PO SEVERE PAIN LEVEL 7-10; Start 11/02/16 at 16:00 Morphine Sulfate (morphine) 2 mg Q4H PRN IV SEVERE PAIN LEVEL 7-10 Last administered on 11/02/16 17:45; Admin Dose 2 MG; Start 11/02/16 at 16:00 Docusate Sodium (Colace) 100 mg Q12H PRN PO CONSTIPATION; Start 11/02/16 at 16: 00 Magnesium Hydroxide (Milk Of Mag) 30 ml DAILY PRN PO CONSTIPATION; Start at 16:00 Bisacodyl (Dulcolax Supp) [address] CONSTIPATION; Start 11/02/16 at 16 :00 Pantoprazole (Protonix Iv) 40 mg DAILY@06 IV Last administered on 11/03/16 05: 40; Admin Dose 40 MG; Start 11/03/16 at 06:00 Heparin Sodium (Porcine) 5000 unit 5,000 unit Q12 SC Last administered on 09:11; Admin Dose 5,000 UNIT; Start 11/02/16 at 21:00 Piperacillin Sod/ Tazobactam Sod (Zosyn 2.25gm/ 50ml (Pmx)) 50 ml @ 100 mls/hr Q8 IVPB Last administered on 11/03/16 05:40; Admin Dose 100 MLS/HR; Start 05/11 at 20:00 Miscellaneous Information (*Rx Drug Level Order Reminder*) 1 ONCE ONCE XX ; Start 11/04/16 at 05:00; Stop 11/04/16 at 05:01 Ferrous Sulfate (Ferrous Sulfate (Ec)) 325 mg BID PO ; Start 11/03/16 at 21:00 JOCELYNN CARDENAS November 03, 2016 16:36
[2016-11-03] MEDS: EPOETIN 3000 UNITS/1 ML INJ (ESRD) IV SCH (16:57)
--- NOTE | 2016-11-03 18:08 | CONS ---
Date/Time of Note Date/Time of Note DATE: 11/03/16 TIME: 17:55 Assessment/Plan Assessment/Plan Chief Complaint/Hosp Course Assessment: NSTEMI - likely type 2 in setting of renal failure and volume overload Acute on likely chronic diastolic heart failure - volume overload due to missing hemodialysis Hypertension End-stage renal disease with uremia - hemodialysis per nephrology Sepsis - antibiotics per infectious disease Large right knee effusion - rule out septic joint, orthopedic surgery evaluation pending Possible urinary tract infection Acute encephalopathy Recommendations: -check additional troponin -obtain transthoracic echocardiogram -volume management via hemodialysis per nephrology Problems: Consultation Date/Type/Reason Admit Date/Time November 02, 2016 at 14:49 Type of Consultation: Cardiology Reason for Consultation elevated troponin Referring Provider: JOCELYNN CARDENAS of Present Illness The patient is a 81 year-old male with end-stage renal disease who presented with right knee pain. He was reported to have sustained right knee trauma. He has apparently also been missing his hemodialysis sessions. The patient has altered mental status and is unable to provide any history. His EKG shows sinus rhythm with premature atrial complexes, without acute ischemic changes. His initial troponin was 0.061, but has trended up to 0.171. He has also been found to have an elevated WBC of 31, large right knee effusion , and possible urinary tract infection with preliminary urine culture growing Staphylococcus aureus. He is also volume overloaded with pulmonary congestion on chest x-ray, and uremic with BUN of 172 and Cr of 10. Unable to obtain review of systems due to patient's altered mental status. Constitutional: No requiring O2 Psychological: No anxiety Past Medical History Incomplete data Medical History: hypertension, renal disease Past Surgical History Unable to obtain Family History Significant Family History: other (unable to obtain) Social History Unable to obtain Exam/Review of Systems Vital Signs Vitals Vital Signs Date Time Temp Pulse Resp B/P Pulse Ox O2 Delivery O2 Flow Rate FiO2 11/03/16 15:11 88 14 11/03/16 07:25 97.8 142/80 94 11/02/16 17:15 Room Air Intake and Output 11/02/16 11/02/16 11/03/16 15:00 23:00 07:00 Intake Total 450 ml 200 ml Output Total 2300 ml Balance -1850 ml 200 ml Exam Constitutional: non-verbal, No alert, No oriented Psych: confusion, No nl mood/affect Head: atraumatic, normocephalic Eyes: nl conjunctiva, nl lids ENMT: nl external ears & nose, nl nasal mucosa & septum Neck: jvd, non-tender, supple Respiratory: crackles/rales, diminished breath sounds Cardiovascular: regular rate and rhythm, systolic murmur Gastrointestinal: non-tender, soft Musculoskeletal: swelling (right knee) Extremities: No clubbing, No cyanosis, No edema Neurological: No nl mental status, No nl speech Results Result Diagram: 11/02/16 1240 11/03/16 0436 Results 24 hrs Laboratory Tests Test 11/02/16 20:05 11/03/16 00:45 11/03/16 04:36 Lactic Acid Level 2.5 H Creatine Kinase 22 L 42 Creatine Kinase Index 6.5 6.2 Creatinine Kinase MB (Mass) 1.43 2.62 H Troponin I 0.098 0.171 *H Sodium Level 136 Potassium Level 4.8 Chloride Level 101 Carbon Dioxide Level 24 Anion Gap 16 Blood Urea Nitrogen 143 H Creatinine 8.70 H Glucose Level 123 Hemoglobin A1c 5.0 Calcium Level 8.7 Phosphorus Level 4.8 Magnesium Level 2.2 Iron Level 16 L Total Iron Binding Capacity 163 L Percent Iron Saturation 10 L Total Bilirubin 0.9 Direct Bilirubin 0.70 H Indirect Bilirubin 0.2 Aspartate Amino Transf (AST/SGOT) 87 H Alanine Aminotransferase (ALT/SGPT) 64 Alkaline Phosphatase 587 H Total Protein 5.9 L Albumin 2.5 L Globulin 3.40 H Albumin/Globulin Ratio 0.73 Triglycerides Level 239 H Cholesterol Level 97 L LDL Cholesterol, Calculated 33 HDL Cholesterol 16 L Cholesterol/HDL Ratio 6.0 Thyroid Stimulating Hormone (TSH) 0.496 Free Thyroxine Index 2.03 Thyroxine (T4) 3.8 L Triiodothyronine (T3) Uptake 53.5 H Parathyroid Hormone (Intact) Medications Medications Current Medications Ondansetron HCl (Zofran Inj) 4 mg Q6H PRN IV NAUSEA AND/OR VOMITING; Start 05/11 at 16:00 Acetaminophen (Tylenol Tab) 650 mg Q6H PRN PO PAIN LEVEL 1-3 OR FEVER; Start at 16:00 Acetaminophen (Tylenol Supp) 650 mg Q6H PRN [place] PAIN LEVEL 1-3 OR FEVER; Start 11/02/16 at 16:00 Acetaminophen/ Hydrocodone Bitart ([place] (5/325)) 1 tab Q6H PRN PO MODERATE PAIN LEVEL 4-6 Last administered on 11/03/16 12:27; Admin Dose 1 TAB; Start 05/11 at 16:00 Acetaminophen/ Hydrocodone Bitart ([place] (5/325)) 2 tab Q6H PRN PO SEVERE PAIN LEVEL 7-10; Start 11/02/16 at 16:00 Morphine Sulfate (morphine) 2 mg Q4H PRN IV SEVERE PAIN LEVEL 7-10 Last administered on 11/02/16 17:45; Admin Dose 2 MG; Start 11/02/16 at 16:00 Docusate Sodium (Colace) 100 mg Q12H PRN PO CONSTIPATION; Start 11/02/16 at 16: 00 Magnesium Hydroxide (Milk Of Mag) 30 ml DAILY PRN PO CONSTIPATION; Start at 16:00 Bisacodyl (Dulcolax Supp) 10 mg DAILY PRN [place] CONSTIPATION; Start 11/02/16 at 16 :00 Pantoprazole (Protonix Iv) 40 mg DAILY@06 IV Last administered on 11/03/16 05: 40; Admin Dose 40 MG; Start 11/03/16 at 06:00 Heparin Sodium (Porcine) 5000 unit 5,000 unit Q12 SC Last administered on 09:11; Admin Dose 5,000 UNIT; Start 11/02/16 at 21:00 Piperacillin Sod/ Tazobactam Sod (Zosyn 2.25gm/ 50ml (Pmx)) 50 ml @ 100 mls/hr Q8 IVPB Last administered on 11/03/16 16:56; Admin Dose 100 MLS/HR; Start 05/11 at 20:00 Miscellaneous Information (*Rx Drug Level Order Reminder*) 1 ONCE ONCE XX ; Start 11/04/16 at 05:00; Stop 11/04/16 at 05:01 Ferrous Sulfate (Ferrous Sulfate (Ec)) 325 mg BID PO ; Start 11/03/16 at 21:00 Atorvastatin Calcium (Lipitor) 20 mg HS PO ; Start 11/03/16 at 21:00 SADI RODRIGUEZ MD November 03, 2016 18:05
[2016-11-03] MEDS ORDERED: hydrALAzine 20 MG INJ IV PRN (18:30)
[2016-11-03] MEDS: ASPIRIN 300 MG SUPP PR SCH (21:00)
[2016-11-03] MEDS: FERROUS SULFATE (EC) 325 MG TAB PO SCH (21:00)
[2016-11-03] MEDS: ATORVASTATIN 20 MG TAB PO SCH (21:01)
[2016-11-04] VITALS (15 sets, daily range): BP systolic 107–161; BP diastolic 46–71; PULSE 87–145; RESP 17–20
[2016-11-04] MEDS: PANTOPRAZOLE 40 MG INJ IV SCH ×2 (05:16→18:13)
[2016-11-04] MEDS: PIPER-TAZO 2.25 GM (PMX) 50 ML IVPB SCH ×3 (05:16→21:32)
[2016-11-04] MEDS: FERROUS SULFATE (EC) 325 MG TAB PO SCH ×2 (09:00→21:00)
[2016-11-04 09:10] LABS: CALCIUM 8.6 mg/dl (8.4-10.2); POTASSIUM 4.6 mmol/L (3.5-5.1)
[2016-11-04 09:32] LABS: ADD SCAN DIFF NO
[2016-11-04 09:44] LABS: CREATININE 7.35 mg/dl (0.61-1.24)
[2016-11-04 09:46] LABS: ABNORMAL IP MESSAGE 1; HEMATOCRIT 17.7 % (42.0-52.0); MEAN CORPUSCULAR HEMOGLOBIN 25.9 pg (29.0-33.0); MEAN CORPUSCULAR HGB CONC 32.8 g/dl (32.0-37.0); PLATELET COUNT 202 10^3/UL (140-415); RED BLOOD COUNT 2.24 10^6/ul (4.70-6.10); RED CELL DISTRIBUTION WIDTH 16.9 % (11.5-14.5); WHITE BLOOD COUNT 38.7 10^3/ul (4.8-10.8)
[2016-11-04 10:06] LABS: HEMOGLOBIN 5.8 g/dl (14.0-18.0)
--- NOTE | 2016-11-04 10:31 | PN ---
Date/Time of Note Date/Time of Note DATE: 11/04/16 TIME: 10:26 Assessment/Plan VTE Prophylaxis VTE Prophylaxis Intervention: heparin Lines/Catheters IV [facility]from [facility] Saline Lock Urinary Cath still in place: No Assessment/Plan Chief Complaint/Hosp Course Assessment and plan 1. Sepsis. Patient noted with positive leukocyte esterase test. Staph aureus seen in urine culture. Continue with antibiotics. ID consult following 2. Reported mechanical fall with right knee pain. Patient did have right knee imaging did show large joint effusion but no fracture. There was also seen a small foreign body or calcification in the soft tissues anteriorly superior to the joint. Continue with analgesics. Awaiting orthopedic surgeon recs 3. End-stage renal disease. Patient was with reported missed dialysis 2. Addiction Professional following. Dialysis per mortgage loan processing clerk 4. Reported hypertension. Blood pressure remained stable at present. Will provide antihypertensives as needed. 5. Dyslipidemia. continue statin 6. elevated troponin. echo pending. suspect type 2 in the setting of sepsis and esrd. cont optimization with cardiovascular medications 7. Anemia. follow up h&H. will transfuse prbc as needed. Will get GI consultation pending clinical course DVT prophylaxis: Heparin DISPO/PLAN: Continue antibiotics. Follow-up repeat H&H for anemia. Transfuse PRBC as needed. Will get GI consultation pending clinical course. awaiting orthopedic input Discussed plan of care with Problems: Subjective 24 Hr Interval Summary Free Text/Dictation confused. getting dialysis Exam/Review of Systems Vital Signs Vitals Vital Signs Date Time Temp Pulse Resp B/P Pulse Ox O2 Delivery O2 Flow Rate FiO2 11/04/16 09:30 91 11/04/16 09:00 16 11/04/16 07:58 98.2 136/65 90 11/02/16 17:15 Room Air Intake and Output 11/03/16 11/03/16 11/04/16 15:00 23:00 07:00 Intake Total 600 ml 260 ml 80 ml Output Total 2000 ml Balance -1400 ml 260 ml 80 ml Exam Constitutional: alert Psych: confusion Neck: supple, No jvd Respiratory: diminished breath sounds Cardiovascular: other (rate controlled, pacemaker in place ) Musculoskeletal: swelling (right knee) Neurological: confused Results Result Diagram: 11/04/16 0520 11/04/16 0520 Results 24 hrs Laboratory Tests Test 11/03/16 17:00 11/04/16 05:20 Troponin I 1.070 *H 1.110 *H White Blood Count 38.7 #H Red Blood Count 2.24 #L Hemoglobin 5.8 #*L Hematocrit 17.7 L Mean Corpuscular Volume 79.0 L Mean Corpuscular Hemoglobin 25.9 L Mean Corpuscular Hemoglobin Concent 32.8 Red Cell Distribution Width 16.9 H Platelet Count 202 Mean Platelet Volume 13.0 H Neutrophils % Eosinophils % Neutrophils # Eosinophils # Sodium Level 140 Potassium Level 4.6 Chloride Level 104 Carbon Dioxide Level 22 Anion Gap 19 H Blood Urea Nitrogen 113 #H Creatinine 7.35 H Glucose Level 108 Calcium Level 8.6 Random Vancomycin Level 9.5 Medications Medications Current Medications Ondansetron HCl (Zofran Inj) 4 mg Q6H PRN IV NAUSEA AND/OR VOMITING; Start 05/11 at 16:00 Acetaminophen (Tylenol Tab) 650 mg Q6H PRN PO PAIN LEVEL 1-3 OR FEVER; Start at 16:00 Acetaminophen (Tylenol Supp) 650 mg Q6H PRN [place] PAIN LEVEL 1-3 OR FEVER; Start 11/02/16 at 16:00 Acetaminophen/ Hydrocodone Bitart ([place] (5/325)) 1 tab Q6H PRN PO MODERATE PAIN LEVEL 4-6 Last administered on 11/03/16 12:27; Admin Dose 1 TAB; Start 05/11 at 16:00 Acetaminophen/ Hydrocodone Bitart ([place] (5/325)) 2 tab Q6H PRN PO SEVERE PAIN LEVEL 7-10; Start 11/02/16 at 16:00 Morphine Sulfate (morphine) 2 mg Q4H PRN IV SEVERE PAIN LEVEL 7-10 Last administered on 11/02/16 17:45; Admin Dose 2 MG; Start 11/02/16 at 16:00 Docusate Sodium (Colace) 100 mg Q12H PRN PO CONSTIPATION; Start 11/02/16 at 16: 00 Magnesium Hydroxide (Milk Of Mag) 30 ml DAILY PRN PO CONSTIPATION; Start at 16:00 Bisacodyl (Dulcolax Supp) 10 mg DAILY PRN [place] CONSTIPATION; Start 11/02/16 at 16 :00 Pantoprazole (Protonix Iv) 40 mg DAILY@06 IV Last administered on 11/04/16 05: 16; Admin Dose 40 MG; Start 11/03/16 at 06:00 Heparin Sodium (Porcine) 5000 unit 5,000 unit Q12 SC Last administered on 21:02; Admin Dose 5,000 UNIT; Start 11/02/16 at 21:00 Piperacillin Sod/ Tazobactam Sod (Zosyn 2.25gm/ 50ml (Pmx)) 50 ml @ 100 mls/hr Q8 IVPB Last administered on 11/04/16 05:16; Admin Dose 100 MLS/HR; Start 05/11 at 20:00 Ferrous Sulfate (Ferrous Sulfate (Ec)) 325 mg BID PO Last administered on 21:00; Admin Dose 325 MG; Start 11/03/16 at 21:00 Atorvastatin Calcium (Lipitor) 20 mg HS PO Last administered on 11/03/16 21:01 ; Admin Dose 20 MG; Start 11/03/16 at 21:00 Aspirin (Aspirin) 300 mg DAILY MS Last administered on 11/03/16 21:00; Admin Dose 300 MG; Start 11/03/16 at 20:00 Hydralazine HCl 10 mg 10 mg Q4H PRN IV SBP>150; Start 11/03/16 at 18:30 Vancomycin HCl/ Sodium Chloride (Vancocin/NS) 250 ml @ 83.333 mls/ hr 12 IVPB ; Start 11/04/16 at 12:00; Stop 11/04/16 at 23:00 JOCELYNN CARDENAS November 04, 2016 10:31
[2016-11-04] MEDS: ASPIRIN 300 MG SUPP PR SCH (10:34)
[2016-11-04] MEDS: HEPARIN 5,000 UNIT/0.5 ML VIAL SC SCH (10:35)
[2016-11-04 10:43] LABS: HEMATOCRIT 17.1 % (42.0-52.0)
[2016-11-04 10:48] LABS: HEMOGLOBIN 5.7 g/dl (14.0-18.0)
[2016-11-04] MEDS ORDERED: SOD CHLORIDE 0.9% 250 ML IV* ONE (10:57)
[2016-11-04 11:41] LABS: HYPOCHROMASIA 1+; LYMPHOCYTES # 0.8 10^3/ul (0.8-2.9); MONOCYTE # 1.2 10^3/ul (0.3-0.9); OVALOCYTES 1+; POLYCHROMASIA 1+
[2016-11-04] MEDS ORDERED: VANCOMYCIN 1.25 GM in SOD CHLORIDE 0.9% 250 ML IVPB SCH (12:00)
--- NOTE | 2016-11-04 12:04 | CONS ---
Date/Time of Note Date/Time of Note DATE: 11/04/16 TIME: 12:04 Assessment/Plan Assessment/Plan Additional Assessment/Plan Acute anemia Evaluate GI bleed versus chronic iron deficiency vs other etiology Stool OB, if positive strongly recommend EGD Monitor H&H every 8 hours, transfuse 2 units for hemoglobin less than 7.5 Monitor labs Abdominal ultrasound ordered Continue PPI bid EGD once cardiac clearance obtained End-stage renal disease Management per nephrology On hemodialysis Right knee pain status post fall Management per Primary Consult with orthopedic surgeon in process Sepsis Management per Primary May benefit from infectious disease consult Hypertension Management per Primary Continue home Elevated troponin Cardiology following Echo in process Further recommendations depend on clinical course Patient seen in collaboration with Dr. Vargas Consultation Date/Type/Reason Admit Date/Time November 02, 2016 at 14:49 Hx of Present Illness Mr. Elzbieta Ruiz is a 81-year-old male that is unable to provide a history presently. Per previous note, "There is a 81-year-old male who is a poor historian and slightly altered due to reported missed dialysis was brought to [facility] due to reports of right knee pain. Complete accounts of history unknown at this time. According to the patient he stated that he fell down at home on October 19, 2016. No reports of loss of consciousness at that time. He does report that since then he has been unable to walk. He also reports he has been refusing dialysis. Due to his continued deconditioned state he was brought to [facility] for further evaluation. Upon examination he did have a right knee x-ray that did show him to have large joint effusion and atherosclerosis but no fracture. There was also seen a small foreign body or calcification in the soft tissues anteriorly superior to the joint." during hospitalization, patient noted with precipitous drop in hemoglobin. Will continue to monitor. Stat transfusion and abdominal ultrasound ordered. Constitutional: No requiring O2 Psychological: confusion Past Medical History Medical History: hypertension, renal disease Exam/Review of Systems Vital Signs Vitals Vital Signs Date Time Temp Pulse Resp B/P Pulse Ox O2 Delivery O2 Flow Rate FiO2 11/04/16 11:42 98.3 92 20 124/57 93 Room Air Intake and Output 11/03/16 11/03/16 11/04/16 15:00 23:00 07:00 Intake Total 600 ml 260 ml 80 ml Output Total 2000 ml Balance -1400 ml 260 ml 80 ml Exam Constitutional: Awake, confused, mildly distressed Psych: nl mood/affect Head: normocephalic Eyes: EOMI, nl conjunctiva, nl lids ENMT: nl external ears & nose, nl lips, missing teeth, nl nasal mucosa & septum Respiratory: clear to auscultation, normal air movement Cardiovascular: regular rate and rhythm Gastrointestinal: soft, diffuse abdominal tenderness with palpation Musculoskeletal: knee fracture, nl extremities to inspection Neurological: Grossly nonfocal, does not follow commands Results Result Diagram: 11/04/16 1020 11/04/16 0520 Results 24 hrs Laboratory Tests Test 11/03/16 17:00 11/04/16 05:20 11/04/16 10:20 Troponin I 1.070 *H 1.110 *H White Blood Count 38.7 #H Red Blood Count 2.24 #L Hemoglobin 5.8 #*L 5.7 *L Hematocrit 17.7 L 17.1 L Mean Corpuscular Volume 79.0 L Mean Corpuscular Hemoglobin 25.9 L Mean Corpuscular Hemoglobin Concent 32.8 Red Cell Distribution Width 16.9 H Platelet Count 202 Mean Platelet Volume 13.0 H Neutrophils % 93.0 H Band Neutrophils % 2.0 Lymphocytes % 2.0 L Monocytes % 3.0 Eosinophils % Neutrophils # 36.0 H Lymphocytes # 0.8 Monocytes # 1.2 H Eosinophils # Polychromasia 1+ Hypochromasia 1+ Macrocytosis 1+ Ovalocytes 1+ Stomatocytes Sodium Level 140 Potassium Level 4.6 Chloride Level 104 Carbon Dioxide Level 22 Anion Gap 19 H Blood Urea Nitrogen 113 #H Creatinine 7.35 H Glucose Level 108 Calcium Level 8.6 Random Vancomycin Level 9.5 Medications Medications Current Medications Ondansetron HCl (Zofran Inj) 4 mg Q6H PRN IV NAUSEA AND/OR VOMITING; Start 05/11 at 16:00 Acetaminophen (Tylenol Tab) 650 mg Q6H PRN PO PAIN LEVEL 1-3 OR FEVER; Start at 16:00 Acetaminophen (Tylenol Supp) 650 mg Q6H PRN [place] PAIN LEVEL 1-3 OR FEVER; Start 11/02/16 at 16:00 Acetaminophen/ Hydrocodone Bitart ([place] (5/325)) 1 tab Q6H PRN PO MODERATE PAIN LEVEL 4-6 Last administered on 11/03/16 12:27; Admin Dose 1 TAB; Start 05/11 at 16:00 Acetaminophen/ Hydrocodone Bitart ([place] (5/325)) 2 tab Q6H PRN PO SEVERE PAIN LEVEL 7-10; Start 11/02/16 at 16:00 Morphine Sulfate (morphine) 2 mg Q4H PRN IV SEVERE PAIN LEVEL 7-10 Last administered on 11/02/16 17:45; Admin Dose 2 MG; Start 11/02/16 at 16:00 Docusate Sodium (Colace) 100 mg Q12H PRN PO CONSTIPATION; Start 11/02/16 at 16: 00 Magnesium Hydroxide (Milk Of Mag) 30 ml DAILY PRN PO CONSTIPATION; Start at 16:00 Bisacodyl (Dulcolax Supp) 10 mg DAILY PRN [place] CONSTIPATION; Start 11/02/16 at 16 :00 Pantoprazole (Protonix Iv) 40 mg DAILY@06 IV Last administered on 11/04/16 05: 16; Admin Dose 40 MG; Start 11/03/16 at 06:00 Heparin Sodium (Porcine) 5000 unit 5,000 unit Q12 SC Last administered on 10:35; Admin Dose 5,000 UNIT; Start 11/02/16 at 21:00 Piperacillin Sod/ Tazobactam Sod (Zosyn 2.25gm/ 50ml (Pmx)) 50 ml @ 100 mls/hr Q8 IVPB Last administered on 11/04/16 05:16; Admin Dose 100 MLS/HR; Start 05/11 at 20:00 Ferrous Sulfate (Ferrous Sulfate (Ec)) 325 mg BID PO Last administered on 21:00; Admin Dose 325 MG; Start 11/03/16 at 21:00 Atorvastatin Calcium (Lipitor) 20 mg HS PO Last administered on 11/03/16 21:01 ; Admin Dose 20 MG; Start 11/03/16 at 21:00 Aspirin (Aspirin) 300 mg DAILY CA Last administered on 11/04/16 10:34; Admin Dose 300 MG; Start 11/03/16 at 20:00 Hydralazine HCl 10 mg 10 mg Q4H PRN IV SBP>150; Start 11/03/16 at 18:30 Vancomycin HCl/ Sodium Chloride (Vancocin/NS) 250 ml @ 83.333 mls/ hr 12 IVPB ; Start 11/04/16 at 12:00; Stop 11/04/16 at 23:00 BENTON NGUYEN November 04, 2016 12:04
--- NOTE | 2016-11-04 14:19 | RADRPT ---
Echocardiogram Report Patient Name: ULICES VICENTE Gender: Male Date: 1935 Study Date: 04-Nov-2016 Java Core Developer: DALE Location: I Ref. Physician: JOCELYNN CARDENAS Quality: Adequate Procedures: Transthoracic echocardiogram with complete 2D, M-Mode, and Doppler examination. Indications: Evaluate Left Ventricular function, elevated Troponins. 2D/M Mode Doppler Measurement Value Normal Ranges Measurement Value Normal Ranges AoR Diam MM 3.3 cm MILLY Vmax 1.3 cm2 ACS MM 1.7 cm MILLY VTI 1.3 cm2 LVIDd 2D 4.7 3.5 - 5.6 cm AV Mean Arben 1.7 m/sec LVIDs 2D 3.8 2.1 - 4.1 cm AV Mean PG 13.1 mmHg LVPWd 2D 1.5 0.6 - 1.1 cm AV Peak Arben 2.3 m/sec IVSd 2D 1.4 0.6 - 1.1 cm AV Peak PG 22.0 mmHg EDV 2D 104.9 cm3 AV VTI 42.3 cm ESV 2D 54.1 cm3 LVOT Mean Arben 0.6 m/sec LA Dimen 2D 4.4 2.3 - 4.0 cm LVOT Mean PG 1.8 mmHg LVOT Diam 2.1 cm LVOT Peak Arben 0.9 m/sec LVOT Peak PG 3.1 mmHg LVOT VTI 18.1 cm MV E Peak Arben 1.3 m/sec MV A Peak Arben 1.1 m/sec MV E/A 1.2 MV Decel Time 178 msec MV Decel Nobles 7 MV E/A 1.2 TR Peak Arben 3.3 m/sec TR Peak PG 43.6 mmHg PV Peak Arben 1.4 m/sec PV Peak PG 8.0 mmHg RVSP 51.6 mmHg Findings Left Ventricle: Normal left ventricular systolic function. Normal left ventricular cavity size. Moderate concentric left ventricular hypertrophy. Ejection fraction is visually estimated at 55 %. Tissue Doppler/Mitral Doppler indices are probably consistent with pseudonormalization with mildly elevated left atrial pressure (Stage II diastolic dysfunction), patient cannot Valsalva. Right Ventricle: Normal right ventricular size. Normal right ventricular systolic function. Left Atrium: There is moderate enlargement of left atrium. Right Atrium: The right atrium is normal in size. Atrial Septum: Normal atrial septum. Mitral Valve: Mild mitral annular calcification. Moderate mitral valve regurgitation. Aortic Valve: Mild aortic stenosis. Aortic valve Max velocity 2.40 m/sec. Max PG 22.00 mmHg. Mean PG 13.00 mmHg. Aortic valve area 1.40 cm2. Aortic cusps appear mildly calcified. Trileaflet aortic valve. Mild aortic valve regurgitation. Tricuspid Valve: Normal appearance of the tricuspid valve. Estimated peak PA systolic pressure 52 mmHg. There is moderate tricuspid regurgitation. Pulmonic Valve: Normal pulmonic valve appearance. There is mild pulmonic regurgitation. Pericardium: Normal pericardium with no significant pericardial effusion. Aorta: Normal aortic root. There is mild aortic root calcification. IVC: Normal size and no respiratory collapse consistent with elevated right atrial pressure. Pulmonary Artery: Normal pulmonary artery size. Conclusions 1.Normal left ventricular systolic function. Normal left ventricular cavity size. Moderate concentric left ventricular hypertrophy. Ejection fraction is visually estimated at 55 %. Tissue Doppler/Mitral Doppler indices are probably consistent with pseudonormalization with mildly elevated left atrial pressure (Stage II diastolic dysfunction). 2.Moderate mitral valve regurgitation. 3.Mild aortic stenosis. Mild aortic valve regurgitation. 4.MOderate tricuspid regurgitation. 5.Estimated peak PA systolic pressure 52 mmHg based on RA pressure of 8 mmHg. Electronically Signed By: Jose L Berumen 04-Nov-2016 14:19:21 -0700 Patient Name: ULICES VICENTE Study Date: 04-Nov-[id number]
[2016-11-04] MEDS: morphine 2 MG INJ IV PRN (15:06)
--- NOTE | 2016-11-04 15:22 | CONS ---
Date/Time of Note Date/Time of Note DATE: 11/04/16 TIME: 15:21 Assessment/Plan Assessment/Plan Chief Complaint/Hosp Course Likely staph aureus bacteremia: Likely source is HD cath. In setting of right knee effusion would assume it is from a septic joint and needs to be evaluated. If it is, it is either seeded hematogenously or could also consider endocarditis with septic emboli. First start with culture, if positive, may need DENISE as TTE did not show anything obvious. NSTEMI -type I vs II. Trop up to 1.1. Not an anticoagulation candidate with severe anemia. Likely not a cardiac candidate unless significant mental improvement Acute on chronic diastolic heart failure - EF preserved. Moderate valvular disease. Mild CHF Severe anemia: no active bleeding noted Hypertension End-stage renal disease with uremia - hemodialysis per nephrology Large right knee effusion - rule out septic joint, orthopedic surgery evaluation pending Acute encephalopathy -d/c sq heparin -d/c ASA due to severe anemia -transfusion with HD -ortho eval for joint tap and culture -may need DENISE depending on joint fluid culture results -consider exchanging HD cath Problems: Consultation Date/Type/Reason Admit Date/Time November 02, 2016 at 14:49 Initial Consult Date 11/02/16 Type of Consultation: Cardiology Referring Provider: JOCELYNN CARDENAS 24 HR Interval Summary Free Text/Dictation Pt remains confused (?baseline). Trop elevated to 1.1. ASA rectal given. Severe anemia this am hgb 5.7. Exam/Review of Systems Vital Signs Vitals Vital Signs Date Time Temp Pulse Resp B/P Pulse Ox O2 Delivery O2 Flow Rate FiO2 11/04/16 14:59 98.4 91 18 161/71 96 11/04/16 12:21 Room Air Intake and Output 11/03/16 11/03/16 11/04/16 15:00 23:00 07:00 Intake Total 600 ml 260 ml 80 ml Output Total 2000 ml Balance -1400 ml 260 ml 80 ml Exam Constitutional: No alert, No oriented Head: atraumatic, normocephalic Neck: No jvd Respiratory: clear to auscultation, No crackles/rales Cardiovascular: regular rate and rhythm, No edema Gastrointestinal: non-tender, soft Extremities: other (right knee warm, tender, effusion noted ), No edema Results Result Diagram: 11/04/16 1020 11/04/16 0520 Results 24 hrs Laboratory Tests Test 11/03/16 17:00 11/04/16 05:20 11/04/16 10:20 Troponin I 1.070 *H 1.110 *H White Blood Count 38.7 #H Red Blood Count 2.24 #L Hemoglobin 5.8 #*L 5.7 *L Hematocrit 17.7 L 17.1 L Mean Corpuscular Volume 79.0 L Mean Corpuscular Hemoglobin 25.9 L Mean Corpuscular Hemoglobin Concent 32.8 Red Cell Distribution Width 16.9 H Platelet Count 202 Mean Platelet Volume 13.0 H Neutrophils % 93.0 H Band Neutrophils % 2.0 Lymphocytes % 2.0 L Monocytes % 3.0 Eosinophils % Neutrophils # 36.0 H Lymphocytes # 0.8 Monocytes # 1.2 H Eosinophils # Polychromasia 1+ Hypochromasia 1+ Macrocytosis 1+ Ovalocytes 1+ Stomatocytes Sodium Level 140 Potassium Level 4.6 Chloride Level 104 Carbon Dioxide Level 22 Anion Gap 19 H Blood Urea Nitrogen 113 #H Creatinine 7.35 H Glucose Level 108 Calcium Level 8.6 Random Vancomycin Level 9.5 Medications Medications Current Medications Ondansetron HCl (Zofran Inj) 4 mg Q6H PRN IV NAUSEA AND/OR VOMITING; Start 05/11 at 16:00 Acetaminophen (Tylenol Tab) 650 mg Q6H PRN PO PAIN LEVEL 1-3 OR FEVER; Start at 16:00 Acetaminophen (Tylenol Supp) 650 mg Q6H PRN AK PAIN LEVEL 1-3 OR FEVER; Start 11/02/16 at 16:00 Acetaminophen/ Hydrocodone Bitart (Ethan (5/325)) 1 tab Q6H PRN PO MODERATE PAIN LEVEL 4-6 Last administered on 11/03/16 12:27; Admin Dose 1 TAB; Start 05/11 at 16:00 Acetaminophen/ Hydrocodone Bitart (Ethan (5/325)) 2 tab Q6H PRN PO SEVERE PAIN LEVEL 7-10; Start 11/02/16 at 16:00 Morphine Sulfate (morphine) 2 mg Q4H PRN IV SEVERE PAIN LEVEL 7-10 Last administered on 11/04/16 15:06; Admin Dose 2 MG; Start 11/02/16 at 16:00 Docusate Sodium (Colace) 100 mg Q12H PRN PO CONSTIPATION; Start 11/02/16 at 16: 00 Magnesium Hydroxide (Milk Of Mag) 30 ml DAILY PRN PO CONSTIPATION; Start at 16:00 Bisacodyl (Dulcolax Supp) 10 mg DAILY PRN [place] CONSTIPATION; Start 11/02/16 at 16 :00 Heparin Sodium (Porcine) 5000 unit 5,000 unit Q12 SC Last administered on 10:35; Admin Dose 5,000 UNIT; Start 11/02/16 at 21:00 Piperacillin Sod/ Tazobactam Sod (Zosyn 2.25gm/ 50ml (Pmx)) 50 ml @ 100 mls/hr Q8 IVPB Last administered on 11/04/16 05:16; Admin Dose 100 MLS/HR; Start 05/11 at 20:00 Ferrous Sulfate (Ferrous Sulfate (Ec)) 325 mg BID PO Last administered on 21:00; Admin Dose 325 MG; Start 11/03/16 at 21:00 Atorvastatin Calcium (Lipitor) 20 mg HS PO Last administered on 11/03/16 21:01 ; Admin Dose 20 MG; Start 11/03/16 at 21:00 Aspirin (Aspirin) 300 mg DAILY AK Last administered on 11/04/16 10:34; Admin Dose 300 MG; Start 11/03/16 at 20:00 Hydralazine HCl 10 mg 10 mg Q4H PRN IV SBP>150; Start 11/03/16 at 18:30 Vancomycin HCl/ Sodium Chloride (Vancocin/NS) 250 ml @ 83.333 mls/ hr 12 IVPB Last administered on 11/04/16 13:35; Admin Dose 83.333 MLS/HR; Start 11/04/16 at 12:00; Stop 11/04/16 at 23:00 Pantoprazole 40 mg 40 mg BID@06,18 IV ; Start 11/04/16 at 18:00 Dextrose/Sodium Chloride (D5-NS) 1,000 ml @ 75 mls/hr [id number] IV ; Start at 14:30 CASSANDRA ALFORD November 04, 2016 15:22
--- NOTE | 2016-11-04 15:51 | CONS ---
Date/Time of Note Date/Time of Note DATE: 11/04/16 TIME: 15:50 Assessment/Plan Assessment/Plan Additional Assessment/Plan 81 yo Male with 1) AMS 2) ESRD on HD 3) Perma-cath 4) Anemia, Chronic, ESRD, KACY 5) Mineral bone disease, ESRD 6) AMS- Uremia 7) Chronic HTN 8) Pulm Edema 9) Bacteremia S/p HD today Tolerated UF today Re-assess need for HD tomorrow. Oral Iron only, S/p EPO cont 3 x week NO IV Iron Rx, due to possible bacteremia, Sepsis. Thank you for opportunity to participate in the care of this patient. Consultation Date/Type/Reason Admit Date/Time November 02, 2016 at 14:49 Initial Consult Date 11/02/16 Type of Consultation: Renal Referring Provider: JOCELYNN CARDENAS 24 HR Interval Summary Free Text/Dictation S/p HD today, Low H/Hct, No signs of bleeding. Planned for PRBC and Abd US. Exam/Review of Systems Vital Signs Vitals Vital Signs Date Time Temp Pulse Resp B/P Pulse Ox O2 Delivery O2 Flow Rate FiO2 11/04/16 14:59 98.4 91 18 161/71 96 11/04/16 12:21 Room Air Intake and Output 11/03/16 11/03/16 11/04/16 15:00 23:00 07:00 Intake Total 600 ml 260 ml 80 ml Output Total 2000 ml Balance -1400 ml 260 ml 80 ml Exam Constitutional: No distress ENMT: mucosa pink and moist Neck: No jvd Respiratory: crackles/rales, No labored breathing Cardiovascular: regular rate and rhythm, No edema Gastrointestinal: soft Skin: No diaphoresis Results Result Diagram: 11/04/16 1020 11/04/16 0520 Results 24 hrs Laboratory Tests Test 11/03/16 17:00 11/04/16 05:20 11/04/16 10:20 Troponin I 1.070 *H 1.110 *H White Blood Count 38.7 #H Red Blood Count 2.24 #L Hemoglobin 5.8 #*L 5.7 *L Hematocrit 17.7 L 17.1 L Mean Corpuscular Volume 79.0 L Mean Corpuscular Hemoglobin 25.9 L Mean Corpuscular Hemoglobin Concent 32.8 Red Cell Distribution Width 16.9 H Platelet Count 202 Mean Platelet Volume 13.0 H Neutrophils % 93.0 H Band Neutrophils % 2.0 Lymphocytes % 2.0 L Monocytes % 3.0 Eosinophils % Neutrophils # 36.0 H Lymphocytes # 0.8 Monocytes # 1.2 H Eosinophils # Polychromasia 1+ Hypochromasia 1+ Macrocytosis 1+ Ovalocytes 1+ Stomatocytes Sodium Level 140 Potassium Level 4.6 Chloride Level 104 Carbon Dioxide Level 22 Anion Gap 19 H Blood Urea Nitrogen 113 #H Creatinine 7.35 H Glucose Level 108 Calcium Level 8.6 Random Vancomycin Level 9.5 Medications Medications Current Medications Ondansetron HCl (Zofran Inj) 4 mg Q6H PRN IV NAUSEA AND/OR VOMITING; Start 05/11 at 16:00 Acetaminophen (Tylenol Tab) 650 mg Q6H PRN PO PAIN LEVEL 1-3 OR FEVER; Start at 16:00 Acetaminophen (Tylenol Supp) 650 mg Q6H PRN [place] PAIN LEVEL 1-3 OR FEVER; Start 11/02/16 at 16:00 Acetaminophen/ Hydrocodone Bitart ([place] (5/325)) 1 tab Q6H PRN PO MODERATE PAIN LEVEL 4-6 Last administered on 11/03/16 12:27; Admin Dose 1 TAB; Start 05/11 at 16:00 Acetaminophen/ Hydrocodone Bitart ([place] (5/325)) 2 tab Q6H PRN PO SEVERE PAIN LEVEL 7-10; Start 11/02/16 at 16:00 Morphine Sulfate (morphine) 2 mg Q4H PRN IV SEVERE PAIN LEVEL 7-10 Last administered on 11/04/16 15:06; Admin Dose 2 MG; Start 11/02/16 at 16:00 Docusate Sodium (Colace) 100 mg Q12H PRN PO CONSTIPATION; Start 11/02/16 at 16: 00 Magnesium Hydroxide (Milk Of Mag) 30 ml DAILY PRN PO CONSTIPATION; Start at 16:00 Bisacodyl 10 mg 10 mg DAILY PRN [place] CONSTIPATION; Start 11/02/16 at 16:00 Piperacillin Sod/ Tazobactam Sod (Zosyn 2.25gm/ 50ml (Pmx)) 50 ml @ 100 mls/hr Q8 IVPB Last administered on 11/04/16 05:16; Admin Dose 100 MLS/HR; Start 05/11 at 20:00 Ferrous Sulfate (Ferrous Sulfate (Ec)) 325 mg BID PO Last administered on 21:00; Admin Dose 325 MG; Start 11/03/16 at 21:00 Atorvastatin Calcium (Lipitor) 20 mg HS PO Last administered on 11/03/16 21:01 ; Admin Dose 20 MG; Start 11/03/16 at 21:00 Hydralazine HCl 10 mg 10 mg Q4H PRN IV SBP>150; Start 11/03/16 at 18:30 Vancomycin HCl/ Sodium Chloride (Vancocin/NS) 250 ml @ 83.333 mls/ hr 12 IVPB Last administered on 11/04/16 13:35; Admin Dose 83.333 MLS/HR; Start 11/04/16 at 12:00; Stop 11/04/16 at 23:00 Pantoprazole 40 mg 40 mg BID@06,18 IV ; Start 11/04/16 at 18:00 Dextrose/Sodium Chloride (D5-NS) 1,000 ml @ 75 mls/hr [id number] IV ; Start at 14:30 TANISHA MURPHY MD November 04, 2016 15:51
--- NOTE | 2016-11-04 17:18 | RADRPT ---
PROCEDURE: US Abdomen and Retroperitoneum. CLINICAL INDICATION: Diffuse abdominal pain TECHNIQUE: Multiple real-time longitudinal and transverse images were acquired of the patient's ab domen and retroperitoneum utilizing a curved array transducer. COMPARISON: None FINDINGS: Hepatomegaly is noted measuring 20.5 cm. The liver demonstrates normal echogenicity. No focal mass is identified. Normal hepatopedal flow is seen within the main portal vein. The gallbladder is norm al. There is no pericholecystic fluid or gallbladder wall thickening or gallstones. No intra or ext rahepatic biliary dilatation is seen. The common bile duct measures 2.3 mm in maximal dimension. Th e visualized portions of the pancreas are unremarkable with obscuration of the tail of the pancreas. The spleen is normal in size. No free fluid is identified. The right kidney measures 9.0 cm in length. The left kidney measures 8.5 cm in length. Benign left renal cyst is noted. Both kidneys demonstrate mildly increased cortical echogenicity. No renal ma ss, calculus, hydronephrosis or perinephric fluid collection is identified. Visualized portions of the aorta and IVC are remarkable for aortic atherosclerotic calcification. IMPRESSION: 1. There is mild hepatomegaly. No focal hepatic mass is identified. 2. Both kidneys demonstrate increased cortical echogenicity, suggestive of medical renal disease. No hydronephrosis or obstructive uropathy is identified. 3. Aortic atherosclerotic calcifications are present. 4. No cholelithiasis or cholecystitis is identified. RPTAT: QQ .Ambrose Candelario MD, Date Time Electronically viewed and signed by .Ambrose Candelario MD, on 11/04/2016 17:18 .R/
[2016-11-04] MEDS: ATORVASTATIN 20 MG TAB PO SCH (21:00)
[2016-11-04] MEDS: DEXTROSE 5%-0.9% NACL 1,000 ML IV SCH (21:20)
--- NOTE | 2016-11-04 21:42 | PN ---
DATE: 11/04/2016 SUBJECTIVE: Patient was transferred today to telemetry secondary to worsening mental status as well as acute anemia. He is lethargic, in no distress. Afebrile. LABORATORY: WBC today 38.7 with H and H 5.8 and 17.7, platelets 202, neutrophils 93. MICROBIOLOGY: Blood culture on admission grew gram-positive cocci in clusters. Urine culture grew Staphylococcus aureus, oxacillin sensitive. Repeat blood cultures pending, negative preliminary. ANTIMICROBIALS: The patient is on IV vancomycin and Zosyn. INDWELLINGS: Right chest Perm-A-Cath. PHYSICAL EXAMINATION: GENERAL: This is a fragile, chronically ill-appearing, elderly man who is lethargic, in no distress , getting blood transfusion. HEENT: Head atraumatic, normocephalic. Sclerae anicteric. Buccal mucosa dry. NECK: Supple, trachea midline. CHEST: Rise symmetrical. Breath sounds diminished to bases. EXTREMITIES: Hyperactive extremities. ASSESSMENT: 1. Severe sepsis with bacteremia, final cultures pending. 2. Oxacillin-sensitive Staphylococcus aureus urinary tract infection. 3. Right knee pain with effusion, rule out septic joint. 4. Acute encephalopathy. 5. End-stage renal disease, hemodialysis dependent. 6. Acute on chronic anemia. PLAN: Continue present care. Continue on current antibiotics. Check chest x-ray. Follow final cu ltures. Blood transfusion p.r.n. Consider ortho evaluation. Dictated By: AUDREY DOMINIQUE NETWORK INTELLIGENCE ANALYST for DARNELL DARDEN/JOSÉ MIGUEL Conf#: [id number] DID#: [id number]
[2016-11-05] VITALS (23 sets, daily range): BP systolic 86–188; BP diastolic 46–81; PULSE 82–165; RESP 18–20
[2016-11-05] MEDS: DEXTROSE 5%-0.9% NACL 1,000 ML IV SCH ×2 (03:50→14:13)
[2016-11-05] MEDS: PANTOPRAZOLE 40 MG INJ IV SCH ×2 (06:06→17:18)
[2016-11-05] MEDS: PIPER-TAZO 2.25 GM (PMX) 50 ML IVPB SCH ×3 (06:06→20:59)
[2016-11-05] MEDS: FERROUS SULFATE (EC) 325 MG TAB PO SCH ×2 (07:50→21:00)
[2016-11-05 08:11] LABS: ADD SCAN DIFF NO
[2016-11-05 08:17] LABS: ABNORMAL IP MESSAGE 1; HEMOGLOBIN 7.5 g/dl (14.0-18.0); MEAN CORPUSCULAR HGB CONC 34.1 g/dl (32.0-37.0); MEAN CORPUSCULAR VOLUME 82.1 fl (82.0-101.0); MEAN PLATELET VOLUME 11.4 fl (7.4-10.4); PLATELET COUNT 168 10^3/UL (140-415); RED BLOOD COUNT 2.68 10^6/ul (4.70-6.10); RED CELL DISTRIBUTION WIDTH 17.6 % (11.5-14.5); WHITE BLOOD COUNT 34.1 10^3/ul (4.8-10.8)
[2016-11-05 08:42] LABS: POTASSIUM 4.2 mmol/L (3.5-5.1)
[2016-11-05 08:45] LABS: CALCIUM 8.6 mg/dl (8.4-10.2)
[2016-11-05 09:03] LABS: CREATININE 6.76 mg/dl (0.61-1.24)
--- NOTE | 2016-11-05 09:37 | CONS ---
Date/Time of Note Date/Time of Note DATE: 11/05/16 TIME: 09:37 Assessment/Plan Assessment/Plan Additional Assessment/Plan 81 yo Male with 1) AMS 2) ESRD on HD 3) Perma-cath 4) Anemia, Chronic, ESRD, KACY 5) Mineral bone disease, ESRD 6) AMS- Uremia 7) Chronic HTN 8) Pulm Edema 9) Bacteremia H/H improved HD ordered for today Oral Iron only, S/p EPO cont 3 x week NO IV Iron Rx, due to possible bacteremia, Sepsis. Thank you for opportunity to participate in the care of this patient. Consultation Date/Type/Reason Admit Date/Time November 02, 2016 at 14:49 Initial Consult Date 11/02/16 Type of Consultation: Renal Referring Provider: JOCELYNN CARDENAS Exam/Review of Systems Vital Signs Vitals Vital Signs Date Time Temp Pulse Resp B/P Pulse Ox O2 Delivery O2 Flow Rate FiO2 11/05/16 08:17 114 11/05/16 07:12 98.6 18 159/72 93 11/04/16 12:21 Room Air Intake and Output 11/04/16 11/04/16 11/05/16 15:00 23:00 07:00 Intake Total 400 ml 350 ml 700 ml Output Total 1400 ml Balance -1000 ml 350 ml 700 ml Exam Constitutional: No distress Respiratory: No labored breathing Neurological: lethargic Skin: No diaphoresis Results Result Diagram: 11/05/16 0800 11/05/16 0800 Results 24 hrs Laboratory Tests Test 11/04/16 10:20 11/05/16 08:00 Hemoglobin 5.7 *L 7.5 #L Hematocrit 17.1 L 22.0 #L White Blood Count 34.1 H Red Blood Count 2.68 L Mean Corpuscular Volume 82.1 Mean Corpuscular Hemoglobin 28.0 L Mean Corpuscular Hemoglobin Concent 34.1 Red Cell Distribution Width 17.6 H Platelet Count 168 Mean Platelet Volume 11.4 H Neutrophils % Eosinophils % Neutrophils # Eosinophils # Sodium Level 148 H Potassium Level 4.2 Chloride Level 110 Carbon Dioxide Level 22 Anion Gap 20 H Blood Urea Nitrogen 93 H Creatinine 6.76 H Glucose Level 134 Calcium Level 8.6 Medications Medications Current Medications Ondansetron HCl (Zofran Inj) 4 mg Q6H PRN IV NAUSEA AND/OR VOMITING; Start 05/11 at 16:00 Acetaminophen (Tylenol Tab) 650 mg Q6H PRN PO PAIN LEVEL 1-3 OR FEVER; Start at 16:00 Acetaminophen (Tylenol Supp) 650 mg Q6H PRN [place] PAIN LEVEL 1-3 OR FEVER; Start 11/02/16 at 16:00 Acetaminophen/ Hydrocodone Bitart ([place] (5/325)) 1 tab Q6H PRN PO MODERATE PAIN LEVEL 4-6 Last administered on 11/03/16 12:27; Admin Dose 1 TAB; Start 05/11 at 16:00 Acetaminophen/ Hydrocodone Bitart ([place] (5/325)) 2 tab Q6H PRN PO SEVERE PAIN LEVEL 7-10; Start 11/02/16 at 16:00 Morphine Sulfate (morphine) 2 mg Q4H PRN IV SEVERE PAIN LEVEL 7-10 Last administered on 11/04/16 15:06; Admin Dose 2 MG; Start 11/02/16 at 16:00 Docusate Sodium (Colace) 100 mg Q12H PRN PO CONSTIPATION; Start 11/02/16 at 16: 00 Magnesium Hydroxide (Milk Of Mag) 30 ml DAILY PRN PO CONSTIPATION; Start at 16:00 Bisacodyl 10 mg 10 mg DAILY PRN [place] CONSTIPATION; Start 11/02/16 at 16:00 Piperacillin Sod/ Tazobactam Sod (Zosyn 2.25gm/ 50ml (Pmx)) 50 ml @ 100 mls/hr Q8 IVPB Last administered on 11/05/16 06:06; Admin Dose 100 MLS/HR; Start 05/11 at 20:00 Ferrous Sulfate (Ferrous Sulfate (Ec)) 325 mg BID PO Last administered on 21:00; Admin Dose 325 MG; Start 11/03/16 at 21:00 Atorvastatin Calcium (Lipitor) 20 mg HS PO Last administered on 11/03/16 21:01 ; Admin Dose 20 MG; Start 11/03/16 at 21:00 Hydralazine HCl (Apresoline) 10 mg Q4H PRN IV SBP>150; Start 11/03/16 at 18:30 Pantoprazole 40 mg 40 mg BID@06,18 IV Last administered on 11/05/16 06:06; Admin Dose 40 MG; Start 11/04/16 at 18:00 Dextrose/Sodium Chloride (D5-NS) 1,000 ml @ 75 mls/hr [id number] IV Last administered on 11/04/16t 21:20; Admin Dose 75 MLS/HR; Start 11/04/16 at 14:30 TANISHA MURPHY MD November 05, 2016 09:37
--- NOTE | 2016-11-05 10:20 | RADRPT ---
PROCEDURE: XR Chest. CLINICAL INDICATION: Shortness of breath. TECHNIQUE: A single portable view of the chest was obtained. COMPARISON: 11/02/2016 FINDINGS: The right-sided hemodialysis catheter and the sternotomy are again noted. The aorta is tortuous and atherosclerotic. The cardiomediastinal silhouette is otherwise enlarged and is stable. Diffuse pu lmonary vascular congestion is seen with likely underlying pulmonary edema and is stable. No dense c onsolidation or discrete pleural effusion is seen. The soft tissues and osseous structures demonstra te benign age related senescent changes. IMPRESSION: Diffuse pulmonary vascular congestion with probable underlying pulmonary edema again seen which has not changed significantly. RPTAT: HPNM Physician Shonda Date Time Electronically viewed and signed by Physician Shonda on 11/05/2016 10:20 /
--- NOTE | 2016-11-05 11:41 | CONS ---
Date/Time of Note Date/Time of Note DATE: 11/05/16 TIME: 11:30 Assessment/Plan Assessment/Plan Chief Complaint/Hosp Course Mr. Elzbieta Ruiz is a 81-year-old male that is unable to provide a history presently. Per previous note, "There is a 81-year-old male who is a poor historian and slightly altered due to reported missed dialysis was brought to [facility] due to reports of right knee pain. Complete accounts of history unknown at this time. According to the patient he stated that he fell down at home on October 19, 2016. No reports of loss of consciousness at that time. He does report that since then he has been unable to walk. He also reports he has been refusing dialysis. Due to his continued deconditioned state he was brought to [facility] for further evaluation. Upon examination he did have a right knee x-ray that did show him to have large joint effusion and atherosclerosis but no fracture. There was also seen a small foreign body or calcification in the soft tissues anteriorly superior to the joint." during hospitalization, patient noted with precipitous drop in hemoglobin. Will continue to monitor. Stat transfusion and abdominal ultrasound ordered. Problems: Additional Assessment/Plan Acute anemia Evaluate GI bleed versus chronic iron deficiency vs other etiology Stool OB, if positive strongly recommend EGD Monitor H&H every 8 hours, transfuse 2 units for hemoglobin less than 7.5 Monitor labs Abdominal ultrasound ordered Continue PPI bid EGD once cardiac clearance obtained End-stage renal disease Management per nephrology On hemodialysis Right knee pain status post fall Management per Primary Consult with orthopedic surgeon in process Sepsis ID following Hypertension Management per Primary Continue home medications Elevated troponin Cardiology following Echo in process Further recommendations depend on clinical course Patient seen in collaboration with Dr. Vargas Consultation Date/Type/Reason Admit Date/Time November 02, 2016 at 14:49 Initial Consult Date 11/02/16 Type of Consultation: GI Referring Provider: JOCELYNN CARDENAS 24 HR Interval Summary Free Text/Dictation Confused at bedside Failed swallow evaluation Elevated WBC Hgb stable No contact info in EMR to discuss findings Exam/Review of Systems Vital Signs Vitals Vital Signs Date Time Temp Pulse Resp B/P Pulse Ox O2 Delivery O2 Flow Rate FiO2 11/05/16 08:17 114 11/05/16 07:12 98.6 18 159/72 93 11/04/16 12:21 Room Air Intake and Output 11/04/16 11/04/16 11/05/16 15:00 23:00 07:00 Intake Total 400 ml 350 ml 700 ml Output Total 1400 ml Balance -1000 ml 350 ml 700 ml Exam Constitutional: Awake, confused, mildly distressed Psych: nl mood/affect Head: normocephalic Eyes: EOMI, nl conjunctiva, nl lids ENMT: nl external ears & nose, nl lips, missing teeth, nl nasal mucosa & septum Respiratory: clear to auscultation, normal air movement Cardiovascular: regular rate and rhythm Gastrointestinal: soft, diffuse abdominal tenderness with palpation Musculoskeletal: knee fracture, nl extremities to inspection Neurological: Grossly nonfocal, does not follow commands Results Result Diagram: 11/05/16 0800 11/05/16 0800 Results 24 hrs Laboratory Tests Test 11/05/16 08:00 White Blood Count 34.1 H Red Blood Count 2.68 L Hemoglobin 7.5 #L Hematocrit 22.0 #L Mean Corpuscular Volume 82.1 Mean Corpuscular Hemoglobin 28.0 L Mean Corpuscular Hemoglobin Concent 34.1 Red Cell Distribution Width 17.6 H Platelet Count 168 Mean Platelet Volume 11.4 H Neutrophils % Eosinophils % Neutrophils # Eosinophils # Sodium Level 148 H Potassium Level 4.2 Chloride Level 110 Carbon Dioxide Level 22 Anion Gap 20 H Blood Urea Nitrogen 93 H Creatinine 6.76 H Glucose Level 134 Calcium Level 8.6 Medications Medications Current Medications Ondansetron HCl (Zofran Inj) 4 mg Q6H PRN IV NAUSEA AND/OR VOMITING; Start 05/11 at 16:00 Acetaminophen (Tylenol Tab) 650 mg Q6H PRN PO PAIN LEVEL 1-3 OR FEVER; Start at 16:00 Acetaminophen (Tylenol Supp) 650 mg Q6H PRN [place] PAIN LEVEL 1-3 OR FEVER; Start 11/02/16 at 16:00 Acetaminophen/ Hydrocodone Bitart ([place] (5/325)) 1 tab Q6H PRN PO MODERATE PAIN LEVEL 4-6 Last administered on 11/03/16t 12:27; Admin Dose 1 TAB; Start 05/11 at 16:00 Acetaminophen/ Hydrocodone Bitart ([place] (5/325)) 2 tab Q6H PRN PO SEVERE PAIN LEVEL 7-10; Start 11/02/16 at 16:00 Morphine Sulfate (morphine) 2 mg Q4H PRN IV SEVERE PAIN LEVEL 7-10 Last administered on 11/04/16 15:06; Admin Dose 2 MG; Start 11/02/16 at 16:00 Docusate Sodium (Colace) 100 mg Q12H PRN PO CONSTIPATION; Start 11/02/16 at 16: 00 Magnesium Hydroxide (Milk Of Mag) 30 ml DAILY PRN PO CONSTIPATION; Start at 16:00 Bisacodyl 10 mg 10 mg DAILY PRN [place] CONSTIPATION; Start 11/02/16 at 16:00 Piperacillin Sod/ Tazobactam Sod (Zosyn 2.25gm/ 50ml (Pmx)) 50 ml @ 100 mls/hr Q8 IVPB Last administered on 11/05/16 06:06; Admin Dose 100 MLS/HR; Start 05/11 at 20:00 Ferrous Sulfate (Ferrous Sulfate (Ec)) 325 mg BID PO Last administered on 21:00; Admin Dose 325 MG; Start 11/03/16 at 21:00 Atorvastatin Calcium (Lipitor) 20 mg HS PO Last administered on 11/03/16 21:01 ; Admin Dose 20 MG; Start 11/03/16 at 21:00 Hydralazine HCl (Apresoline) 10 mg Q4H PRN IV SBP>150; Start 11/03/16 at 18:30 Pantoprazole 40 mg 40 mg BID@06,18 IV Last administered on 11/05/16 06:06; Admin Dose 40 MG; Start 11/04/16 at 18:00 Dextrose/Sodium Chloride (D5-NS) 1,000 ml @ 75 mls/hr [id number] IV Last administered on 11/04/16 21:20; Admin Dose 75 MLS/HR; Start 11/04/16 at 14:30 BENTON NGUYEN November 05, 2016 11:40
[2016-11-05 11:57] LABS: BASOPHIL # 0.3 10^3/ul (0.0-0.1); EOSINOPHILS # 0.7 10^3/ul (0.0-0.5); LYMPHOCYTES # 0.7 10^3/ul (0.8-2.9); MONOCYTE # 2.7 10^3/ul (0.3-0.9); NEUTROPHIL # 29.7 10^3/ul (1.6-7.5)
[2016-11-05] MEDS: EPOETIN 3000 UNITS/1 ML INJ (ESRD) IV SCH (14:12)
--- NOTE | 2016-11-05 15:46 | CONS ---
Date/Time of Note Date/Time of Note DATE: 11/05/16 TIME: 15:39 Assessment/Plan Assessment/Plan Chief Complaint/Hosp Course SUBJECTIVE: Lethargic, in HD. Afebrile. MICROBIOLOGY: Blood and urine cultures on admission grew PADMA ANTIMICROBIALS: The patient is on IV vancomycin and Zosyn. INDWELLINGS: Right chest Perm-A-Cath. PHYSICAL EXAMINATION: GENERAL: This is a fragile, chronically ill-appearing, elderly man who is lethargic, in no distress. HEENT: Head atraumatic, normocephalic. Sclerae anicteric. Buccal mucosa dry. NECK: Supple, trachea midline. CHEST: Rise symmetrical. Breath sounds diminished to bases. EXTREMITIES: Hyperactive extremities. ASSESSMENT: 1. Severe sepsis with PADMA bacteremia. 2. Oxacillin-sensitive Staphylococcus aureus urinary tract infection. 3. Right knee pain with effusion, rule out septic joint. 4. Acute encephalopathy. 5. End-stage renal disease, hemodialysis dependent. 6. Acute on chronic anemia. PLAN: Clinically unchanged. Dc Vanco, continue Zosyn, f/u repeat bld cx, pending ortho eval, consider CT brain, consider permacath change with line holiday DW staff Problems: Consultation Date/Type/Reason Admit Date/Time November 02, 2016 at 14:49 Initial Consult Date 11/02/16 Type of Consultation: ID Referring Provider: JOCELYNN CADRENAS Exam/Review of Systems Vital Signs Vitals Vital Signs Date Time Temp Pulse Resp B/P Pulse Ox O2 Delivery O2 Flow Rate FiO2 11/05/16 15:18 98.6 117 20 170/79 95 11/04/16 12:21 Room Air Intake and Output 11/04/16 11/04/16 11/05/16 15:00 23:00 07:00 Intake Total 400 ml 350 ml 700 ml Output Total 1400 ml Balance -1000 ml 350 ml 700 ml Results Result Diagram: 11/05/16 0800 11/05/16 0800 Results 24 hrs Laboratory Tests Test 11/05/16 08:00 White Blood Count 34.1 H Red Blood Count 2.68 L Hemoglobin 7.5 #L Hematocrit 22.0 #L Mean Corpuscular Volume 82.1 Mean Corpuscular Hemoglobin 28.0 L Mean Corpuscular Hemoglobin Concent 34.1 Red Cell Distribution Width 17.6 H Platelet Count 168 Mean Platelet Volume 11.4 H Neutrophils % 87.0 H Lymphocytes % 2.0 L Monocytes % 8.0 Eosinophils % 2.0 Basophils % 1.0 Neutrophils # 29.7 H Lymphocytes # 0.7 L Monocytes # 2.7 H Eosinophils # 0.7 H Basophils # 0.3 H Sodium Level 148 H Potassium Level 4.2 Chloride Level 110 Carbon Dioxide Level 22 Anion Gap 20 H Blood Urea Nitrogen 93 H Creatinine 6.76 H Glucose Level 134 Calcium Level 8.6 Medications Medications Current Medications Ondansetron HCl (Zofran Inj) 4 mg Q6H PRN IV NAUSEA AND/OR VOMITING; Start 05/11 at 16:00 Acetaminophen (Tylenol Tab) 650 mg Q6H PRN PO PAIN LEVEL 1-3 OR FEVER; Start at 16:00 Acetaminophen (Tylenol Supp) 650 mg Q6H PRN [place] PAIN LEVEL 1-3 OR FEVER; Start 11/02/16 at 16:00 Acetaminophen/ Hydrocodone Bitart ([place] (5/325)) 1 tab Q6H PRN PO MODERATE PAIN LEVEL 4-6 Last administered on 11/03/16 12:27; Admin Dose 1 TAB; Start 05/11 at 16:00 Acetaminophen/ Hydrocodone Bitart ([place] (5/325)) 2 tab Q6H PRN PO SEVERE PAIN LEVEL 7-10; Start 11/02/16 at 16:00 Morphine Sulfate (morphine) 2 mg Q4H PRN IV SEVERE PAIN LEVEL 7-10 Last administered on 11/04/16 15:06; Admin Dose 2 MG; Start 11/02/16 at 16:00 Docusate Sodium (Colace) 100 mg Q12H PRN PO CONSTIPATION; Start 11/02/16 at 16: 00 Magnesium Hydroxide (Milk Of Mag) 30 ml DAILY PRN PO CONSTIPATION; Start at 16:00 Bisacodyl 10 mg 10 mg DAILY PRN [place] CONSTIPATION; Start 11/02/16 at 16:00 Piperacillin Sod/ Tazobactam Sod (Zosyn 2.25gm/ 50ml (Pmx)) 50 ml @ 100 mls/hr Q8 IVPB Last administered on 11/05/16 14:10; Admin Dose 100 MLS/HR; Start 05/11 at 20:00 Ferrous Sulfate (Ferrous Sulfate (Ec)) 325 mg BID PO Last administered on 21:00; Admin Dose 325 MG; Start 11/03/16 at 21:00 Atorvastatin Calcium (Lipitor) 20 mg HS PO Last administered on 11/03/16 21:01 ; Admin Dose 20 MG; Start 11/03/16 at 21:00 Hydralazine HCl (Apresoline) 10 mg Q4H PRN IV SBP>150; Start 11/03/16 at 18:30 Pantoprazole 40 mg 40 mg BID@06,18 IV Last administered on 11/05/16 06:06; Admin Dose 40 MG; Start 11/04/16 at 18:00 Dextrose/Sodium Chloride (D5-NS) 1,000 ml @ 75 mls/hr [id number] IV Last administered on 11/05/16 14:13; Admin Dose 75 MLS/HR; Start 11/04/16 at 14:30 AUDREY DOMINIQUE NP November 05, 2016 15:46
--- NOTE | 2016-11-05 16:16 | PN ---
Date/Time of Note Date/Time of Note DATE: 11/05/16 TIME: 16:10 Assessment/Plan VTE Prophylaxis VTE Prophylaxis Intervention: SCD's Lines/Catheters IV [facility] Peripheral IV Urinary Cath still in place: No Assessment/Plan Chief Complaint/Hosp Course Assessment and plan 1. Sepsis. Patient noted with positive leukocyte esterase test. Staph aureus seen in urine culture. Continue with antibiotics. ID consult following. suspect septic joint. Discussed with orthopedic surgeon. will get MRI of the right knee 2. Reported mechanical fall with right knee pain. Patient did have right knee imaging did show large joint effusion but no fracture. There was also seen a small foreign body or calcification in the soft tissues anteriorly superior to the joint. Continue with analgesics. Awaiting orthopedic surgeon recs 3. End-stage renal disease. Patient was with reported missed dialysis 2. 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 Reported hypertension. Blood pressure remained stable at present. Will provide antihypertensives as needed. 5. Dyslipidemia. continue statin 6. elevated troponin. echo pending. suspect type 2 in the setting of sepsis and esrd. cont optimization with cardiovascular medications 7. Anemia. follow up h&H. will transfuse prbc as needed. Will get GI consultation pending clinical course DVT prophylaxis: Heparin DISPO/PLAN: Continue antibiotics. transfuse prbc as needed for anemia. Discussed with surgeon, plan for mri of the right knee Discussed plan of care with Problems: Subjective 24 Hr Interval Summary Free Text/Dictation resting at this time. no acute distress seen. Exam/Review of Systems Vital Signs Vitals Vital Signs Date Time Temp Pulse Resp B/P Pulse Ox O2 Delivery O2 Flow Rate FiO2 11/05/16 15:18 98.6 117 20 170/79 95 11/04/16 12:21 Room Air Intake and Output 11/04/16 11/04/16 11/05/16 14:59 22:59 06:59 Intake Total 400 ml 350 ml 700 ml Output Total 1400 ml Balance -1000 ml 350 ml 700 ml Exam Constitutional: alert, confused Psych: confusion Neck: supple, No jvd Respiratory: diminished breath sounds, no obvious wheezing Cardiovascular: regular rat to tachycardic Musculoskeletal: swelling (right knee) Neurological: confused Results Result Diagram: 11/05/16 0800 11/05/16 0800 Results 24 hrs Laboratory Tests Test 11/05/16 08:00 White Blood Count 34.1 H Red Blood Count 2.68 L Hemoglobin 7.5 #L Hematocrit 22.0 #L Mean Corpuscular Volume 82.1 Mean Corpuscular Hemoglobin 28.0 L Mean Corpuscular Hemoglobin Concent 34.1 Red Cell Distribution Width 17.6 H Platelet Count 168 Mean Platelet Volume 11.4 H Neutrophils % 87.0 H Lymphocytes % 2.0 L Monocytes % 8.0 Eosinophils % 2.0 Basophils % 1.0 Neutrophils # 29.7 H Lymphocytes # 0.7 L Monocytes # 2.7 H Eosinophils # 0.7 H Basophils # 0.3 H Sodium Level 148 H Potassium Level 4.2 Chloride Level 110 Carbon Dioxide Level 22 Anion Gap 20 H Blood Urea Nitrogen 93 H Creatinine 6.76 H Glucose Level 134 Calcium Level 8.6 Medications Medications Current Medications Ondansetron HCl (Zofran Inj) 4 mg Q6H PRN IV NAUSEA AND/OR VOMITING; Start 05/11 at 16:00 Acetaminophen (Tylenol Tab) 650 mg Q6H PRN PO PAIN LEVEL 1-3 OR FEVER; Start at 16:00 Acetaminophen (Tylenol Supp) 650 mg Q6H PRN [place] PAIN LEVEL 1-3 OR FEVER; Start 11/02/16 at 16:00 Acetaminophen/ Hydrocodone Bitart ([place] (5/325)) 1 tab Q6H PRN PO MODERATE PAIN LEVEL 4-6 Last administered on 11/03/16 12:27; Admin Dose 1 TAB; Start 05/11 at 16:00 Acetaminophen/ Hydrocodone Bitart ([place] (5/325)) 2 tab Q6H PRN PO SEVERE PAIN LEVEL 7-10; Start 11/02/16 at 16:00 Morphine Sulfate (morphine) 2 mg Q4H PRN IV SEVERE PAIN LEVEL 7-10 Last administered on 11/04/16 15:06; Admin Dose 2 MG; Start 11/02/16 at 16:00 Docusate Sodium (Colace) 100 mg Q12H PRN PO CONSTIPATION; Start 11/02/16 at 16: 00 Magnesium Hydroxide (Milk Of Mag) 30 ml DAILY PRN PO CONSTIPATION; Start at 16:00 Bisacodyl 10 mg 10 mg DAILY PRN [place] CONSTIPATION; Start 11/02/16 at 16:00 Piperacillin Sod/ Tazobactam Sod (Zosyn 2.25gm/ 50ml (Pmx)) 50 ml @ 100 mls/hr Q8 IVPB Last administered on 11/05/16 14:10; Admin Dose 100 MLS/HR; Start 05/11 at 20:00 Ferrous Sulfate (Ferrous Sulfate (Ec)) 325 mg BID PO Last administered on 21:00; Admin Dose 325 MG; Start 11/03/16 at 21:00 Atorvastatin Calcium (Lipitor) 20 mg HS PO Last administered on 11/03/16 21:01 ; Admin Dose 20 MG; Start 11/03/16 at 21:00 Hydralazine HCl (Apresoline) 10 mg Q4H PRN IV SBP>150; Start 11/03/16 at 18:30 Pantoprazole 40 mg 40 mg BID@06,18 IV Last administered on 11/05/16 06:06; Admin Dose 40 MG; Start 11/04/16 at 18:00 Dextrose/Sodium Chloride (D5-NS) 1,000 ml @ 75 mls/hr [id number] IV Last administered on 11/05/16 14:13; Admin Dose 75 MLS/HR; Start 11/04/16 at 14:30 JOCELYNN CARDENAS November 05, 2016 16:16
--- NOTE | 2016-11-05 16:43 | CONS ---
Date/Time of Note Date/Time of Note DATE: 11/05/16 TIME: 16:41 Assessment/Plan Assessment/Plan Chief Complaint/Hosp Course MSSA bacteremia: Likely source is HD cath. In setting of right knee effusion would assume it is from a septic joint and needs to be evaluated. If it is, it is either seeded hematogenously or could also consider endocarditis with septic emboli. First start with culture, if positive, may need DENISE as TTE did not show anything obvious. NSTEMI -type I vs II. Trop up to 1.1. Not an anticoagulation candidate with severe anemia. Likely not a cardiac candidate unless significant mental improvement Acute on chronic diastolic heart failure - EF preserved. Moderate valvular disease. ~euvolemic Severe anemia: no active bleeding noted. s/p transfusion 11/04 Hypertension End-stage renal disease with uremia - hemodialysis per nephrology Large right knee effusion - rule out septic joint, orthopedic surgery evaluation pending Acute encephalopathy -hold ASA, heparin -ortho eval for joint tap and culture -may need DENISE depending on joint fluid culture results -consider exchanging HD cath Problems: Consultation Date/Type/Reason Admit Date/Time November 02, 2016 at 14:49 Initial Consult Date 11/02/16 Type of Consultation: Cardiology Referring Provider: JOCELYNN CARDENAS 24 HR Interval Summary Free Text/Dictation No fevers overnight. s/p HD. still confused Exam/Review of Systems Vital Signs Vitals Vital Signs Date Time Temp Pulse Resp B/P Pulse Ox O2 Delivery O2 Flow Rate FiO2 11/05/16 16:39 114 11/05/16 15:18 98.6 20 170/79 95 11/04/16 12:21 Room Air Intake and Output 11/04/16 11/04/16 11/05/16 15:00 23:00 07:00 Intake Total 400 ml 350 ml 700 ml Output Total 1400 ml Balance -1000 ml 350 ml 700 ml Exam Constitutional: alert, No oriented Head: atraumatic, normocephalic Neck: No jvd Respiratory: crackles/rales (mild), No clear to auscultation Cardiovascular: regular rate and rhythm (tachy, regular), No edema Gastrointestinal: non-tender, soft Extremities: other (right knee with effusion, tender but not warm/red) Neurological: No nl mental status, No nl speech Results Result Diagram: 11/05/16 0800 11/05/16 0800 Results 24 hrs Laboratory Tests Test 11/05/16 08:00 White Blood Count 34.1 H Red Blood Count 2.68 L Hemoglobin 7.5 #L Hematocrit 22.0 #L Mean Corpuscular Volume 82.1 Mean Corpuscular Hemoglobin 28.0 L Mean Corpuscular Hemoglobin Concent 34.1 Red Cell Distribution Width 17.6 H Platelet Count 168 Mean Platelet Volume 11.4 H Neutrophils % 87.0 H Lymphocytes % 2.0 L Monocytes % 8.0 Eosinophils % 2.0 Basophils % 1.0 Neutrophils # 29.7 H Lymphocytes # 0.7 L Monocytes # 2.7 H Eosinophils # 0.7 H Basophils # 0.3 H Sodium Level 148 H Potassium Level 4.2 Chloride Level 110 Carbon Dioxide Level 22 Anion Gap 20 H Blood Urea Nitrogen 93 H Creatinine 6.76 H Glucose Level 134 Calcium Level 8.6 Medications Medications Current Medications Ondansetron HCl (Zofran Inj) 4 mg Q6H PRN IV NAUSEA AND/OR VOMITING; Start 05/11 at 16:00 Acetaminophen (Tylenol Tab) 650 mg Q6H PRN PO PAIN LEVEL 1-3 OR FEVER; Start at 16:00 Acetaminophen (Tylenol Supp) 650 mg Q6H PRN [place] PAIN LEVEL 1-3 OR FEVER; Start 11/02/16 at 16:00 Acetaminophen/ Hydrocodone Bitart ([place] (5/325)) 1 tab Q6H PRN PO MODERATE PAIN LEVEL 4-6 Last administered on 11/03/16 12:27; Admin Dose 1 TAB; Start 05/11 at 16:00 Acetaminophen/ Hydrocodone Bitart ([place] (5/325)) 2 tab Q6H PRN PO SEVERE PAIN LEVEL 7-10; Start 11/02/16 at 16:00 Morphine Sulfate (morphine) 2 mg Q4H PRN IV SEVERE PAIN LEVEL 7-10 Last administered on 11/04/16 15:06; Admin Dose 2 MG; Start 11/02/16 at 16:00 Docusate Sodium (Colace) 100 mg Q12H PRN PO CONSTIPATION; Start 11/02/16 at 16: 00 Magnesium Hydroxide (Milk Of Mag) 30 ml DAILY PRN PO CONSTIPATION; Start at 16:00 Bisacodyl 10 mg 10 mg DAILY PRN [place] CONSTIPATION; Start 11/02/16 at 16:00 Piperacillin Sod/ Tazobactam Sod (Zosyn 2.25gm/ 50ml (Pmx)) 50 ml @ 100 mls/hr Q8 IVPB Last administered on 11/05/16 14:10; Admin Dose 100 MLS/HR; Start 05/11 at 20:00 Ferrous Sulfate (Ferrous Sulfate (Ec)) 325 mg BID PO Last administered on 21:00; Admin Dose 325 MG; Start 11/03/16 at 21:00 Atorvastatin Calcium (Lipitor) 20 mg HS PO Last administered on 11/03/16 21:01 ; Admin Dose 20 MG; Start 11/03/16 at 21:00 Hydralazine HCl (Apresoline) 10 mg Q4H PRN IV SBP>150 Last administered on 11/05 16:19; Admin Dose 10 MG; Start 11/03/16 at 18:30 Pantoprazole 40 mg 40 mg BID@06,18 IV Last administered on 11/05/16 06:06; Admin Dose 40 MG; Start 11/04/16 at 18:00 Dextrose/Sodium Chloride (D5-NS) 1,000 ml @ 75 mls/hr [id number] IV Last administered on 11/05/16 14:13; Admin Dose 75 MLS/HR; Start 11/04/16 at 14:30 CASSANDRA ALFORD November 05, 2016 16:43
[2016-11-05] MEDS: morphine 2 MG INJ IV PRN (17:57)
--- NOTE | 2016-11-05 19:06 | CONS ---
DATE OF ADMISSION: 11/02/2016 DATE OF CONSULTATION: CHIEF COMPLAINT: Weakness in the legs. HISTORY OF PRESENT ILLNESS: The patient is a 81-year-old male who apparently had a fall 2 weeks ago . The patient apparently did not follow through with his dialysis of treatment for 2 weeks and deve loped sepsis and septic uremia and has been admitted for evaluation. The patient has been afebrile. The white cell count has been elevated. The urine culture was positive for Staph aureus. The [facility] recent blood culture, 11/03/2016, showed no growth after 2 days. An x-ray of the knee shows no fr acture or appreciable degenerative change. There is a moderate effusion. Atherosclerosis. 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 Apart from that, there is no other history o f any exposure to foreign body to the leg. PHYSICAL EXAMINATION: On examination, the patient is confused. The family members are present. Th e knee is not warm or red. There is no palpable fluctuance or effusion. The patient does not move either leg. Family states that as a result of not going to dialysis. He has been extremely weak an d keeps falling and has no strength. ASSESSMENT AND PLAN: At this point in time, there is no evidence for a septic process in the knee j oint. There is no effusion that can be aspirated or drained. Apparently, the patient had an MRI sc an at [facility] where he was hospitalized 2 or 3 weeks ago. The daughter feels that she may have overheard that he has a torn meniscus and she will try to obtain those records from [facility] tomorrow. Most likely there is a possible meniscus tear, an acute process after the fall which may explain the pain in the knee. For the time being, we will await the outcome of the MRI study. Dictated By: MECHELLE CRUZ MD HD/NTS Conf#: [id number] DID#: [id number] CC: SHANE PEARSON;*EndCC*
[2016-11-05] MEDS: ATORVASTATIN 20 MG TAB PO SCH (21:00)
[2016-11-06] VITALS (9 sets, daily range): BP systolic 0–85; BP diastolic 26–39; PULSE 0–131; RESP 0–20
[2016-11-06] MEDS ORDERED: CA CHLORIDE 10% 10 ML SYRINGE ONE
[2016-11-06] MEDS ORDERED: DEXTROSE 5% WATER 500 ML BAG ONE
[2016-11-06] MEDS ORDERED: DEXTROSE 50% 50 ML SYRINGE ONE
[2016-11-06] MEDS ORDERED: AMIODARONE 150 MG INJ ONE
[2016-11-06] MEDS ORDERED: NA BICARBONATE 8.4% 50 ML SYG ONE
[2016-11-06 00:11] LABS: AADO2 Arterial 392.9 mmHg (7.0-24.0); Allen Test ACCEPTAB; Arterial Base Excess -10.7 mmol/L (-3.0-3); Arterial COHb 0.9 % (0.0-3.0); Arterial Fraction of Oxyhgb 97.7 % (93.0-99.0); Arterial HCO3 17.6 mmol/L (22.0-26.0); Arterial MetHb 0.6 % (0.0-1.5); Arterial Total Hemglobin 5.9 g/dl (12.0-18.0); MODE NON-REBREATHING MASK
[2016-11-06] MEDS ORDERED: NORepinephrine 8MG/250 ML (PMX 250 ML ONE (00:48)
--- NOTE | 2016-11-06 01:11 | RADRPT ---
PROCEDURE: XR Chest. CLINICAL INDICATION: The patient is status post cardiac arrest. TECHNIQUE: Single frontal view of the chest. COMPARISON: 11/02/2016. FINDINGS: Endotracheal intubation is seen with tip about 47 mm above the caron. Right central venous double- lumen dialysis catheter seen with tip in the right atrium. Cardiomegaly. Atherosclerotic calcifica tions in the thoracic aorta. Cardiac pacing at the over the left lower chest. Lungs are clear. No signs of pleural fluid or pneumothorax are seen. The osseous structures and sof t tissues are unremarkable. IMPRESSION: No evidence for active cardiopulmonary disease. RPTAT: [facility] Physician Adela Date Time Electronically viewed and signed by Physician Adela on 11/06/2016 01:11 RS/
[2016-11-06 01:19] LABS: ADD SCAN DIFF NO
[2016-11-06 01:20] LABS: ABNORMAL IP MESSAGE 1; HEMATOCRIT 14.7 % (42.0-52.0); MEAN CORPUSCULAR HEMOGLOBIN 28.2 pg (29.0-33.0); MEAN CORPUSCULAR HGB CONC 29.9 g/dl (32.0-37.0); MEAN CORPUSCULAR VOLUME 94.2 fl (82.0-101.0); PLATELET COUNT 121 10^3/UL (140-415); RED BLOOD COUNT 1.56 10^6/ul (4.70-6.10); RED CELL DISTRIBUTION WIDTH 17.9 % (11.5-14.5); WHITE BLOOD COUNT 34.5 10^3/ul (4.8-10.8)
[2016-11-06] MEDS ORDERED: VASOPRESSIN 60 UNIT in DEXTROSE 5% 60 ML IV SCH (01:30)
[2016-11-06 01:32] LABS: ALBUMIN 1.8 g/dl (3.3-4.9); ALBUMIN/GLOBULIN RATIO 0.64; BILIRUBIN,DIRECT 0.3 mg/dl (0.00-0.20); BILIRUBIN,INDIRECT 0.3 mg/dl (0-1.1); BILIRUBIN,TOTAL 0.6 mg/dl (0.2-1.3); CALCIUM 11.5 mg/dl (8.4-10.2); MAGNESIUM 4.4 mg/dl (1.7-2.5); PHOSPHORUS 11.2 mg/dl (2.5-4.9); TOTAL PROTEIN 4.6 g/dl (6.1-8.1)
[2016-11-06] MEDS ORDERED: EPINEPHrine 0.1 MG/ML SYG ONE ×2 (01:33→01:51)
[2016-11-06 01:38] LABS: HEMOGLOBIN 4.4 g/dl (14.0-18.0)
[2016-11-06 01:47] LABS: CREATININE 6.05 mg/dl (0.61-1.24)
[2016-11-06 01:48] LABS: POTASSIUM 6.3 mmol/L (3.5-5.1)
[2016-11-06] MEDS ORDERED: EPINEPHrine 4 MG in SOD CHLORIDE 0.9% 246 ML IV SCH (02:00)
[2016-11-06 02:16] LABS: EOSINOPHILS # 0.7 10^3/ul (0.0-0.5); LYMPHOCYTES # 7.6 10^3/ul (0.8-2.9); NEUTROPHIL # 21.7 10^3/ul (1.6-7.5)
[2016-11-06 02:21] LABS: ANISOCYTOSIS 2+; HYPOCHROMASIA 2+; OVALOCYTES 2+
[2016-11-06 02:22] LABS: MICROCYTOSIS 1+; PLATELET ESTIMATE PLT APPEAR DECREASED; POLYCHROMASIA 1+; TEAR DROP CELLS 1+
[2016-11-07 09:35] LABS: AADO2 Arterial 392.9 mmHg (7.0-24.0); Allen Test ACCEPTAB; Arterial Base Excess -10.7 mmol/L (-3.0-3); Arterial COHb 0.9 % (0.0-3.0); Arterial Fraction of Oxyhgb 97.7 % (93.0-99.0); Arterial HCO3 17.6 mmol/L (22.0-26.0); Arterial MetHb 0.6 % (0.0-1.5); Arterial Total Hemglobin 5.9 g/dl (12.0-18.0); MODE NON-REBREATHING MASK
== END 2016-11-06 06:13 | disposition expired | DRG 871 ==
LOC: E/R 12:07 → PP2 14:49 → TEL 11-04 12:11 → ICU 11-06 00:53
PROVIDERS: ADMIT Hospitalist; ATTEND Hospitalist
PROC: 5A1D60Z (ICD-10-PCS; 2016-11-03)
PROC: 30233N1 Transfusion of Nonautologous Red Blood Cells into Peripheral Vein, Percutaneous Approach (ICD-10-PCS; 2016-11-04)
PROC: 5A1935Z Respiratory Ventilation, Less than 24 Consecutive Hours (ICD-10-PCS; principal; 2016-11-06)
PROC: 5A12012 Performance of Cardiac Output, Single, Manual (ICD-10-PCS; 2016-11-06)
DX: A41.01 Sepsis due to Methicillin susceptible Staphylococcus aureus (principal); I50.33 Acute on chronic diastolic (congestive) heart failure; I21.4 Non-ST elevation (NSTEMI) myocardial infarction; G93.40 Encephalopathy, unspecified; N18.6 End stage renal disease; I13.2 Hypertensive heart and chronic kidney disease with heart failure and with stage 5 chronic kidney disease, or end stage renal disease; N39.0 Urinary tract infection, site not specified; E78.5 Hyperlipidemia, unspecified; I46.9 Cardiac arrest, cause unspecified; M25.461 Effusion, right knee; Z99.2 Dependence on renal dialysis; M89.8X9 Other specified disorders of bone, unspecified site; E83.89 Other disorders of mineral metabolism; D64.9 Anemia, unspecified; F03.90 Unspecified dementia, unspecified severity, without behavioral disturbance, psychotic disturbance, mood disturbance, and anxiety; R65.20 Severe sepsis without septic shock; Z91.15 Patient's noncompliance with renal dialysis; Z95.1 Presence of aortocoronary bypass graft
CPT/HCPCS: 31500; 36415; 36430; 36600; 71010; 73562; 76700; 80048; 80053; 80061; 80202; 81001; 81003; 82550; 82553; 82803; 82962; 83036; 83540; 83605; 83735; 83970; 84100; 84436; 84443; 84479; 84484; 85014; 85018; 85025; 85610; 85730; 86850; 86900; 86901; 86920; 87040; 87081; 87086; 90935; 92610; 92950; 93005; 93306; 94002; 94770; 96374; 96375; A4310; C1751; C9113; J0171; J0282; J0360; J0692; J0886; J1644; J2150; J2270; J2543; J3370; J7040; J7042; J7050; J7060; P9016